=== PATIENT | female | born 1965 | race Caucasian/White ===

== ENCOUNTER 2017-01-04 11:09 | Inpatient (IN) | payer OTHER ==
[2017-01-04] VITALS (9 sets, daily range): BP systolic 131–172; BP diastolic 69–87; PULSE 86–94; RESP 18–20; TEMP 97–97.9; O2SAT 97–99
[~2017-01-04] VITALS: Ht 154.9 cm; Wt 97.5 kg
[~2017-01-04 11:09] MED LIST: GUAI100S6 PO; LISI-357 PO; NOVOLOGP2 IMPLANT; PERC5TAB12 PO; PROM25TA5 PO; SYNT25TA PO; TAMS0.4C67 PO; VITA500T49 PO
--- NOTE | 2017-01-04 11:41 | PD ---
HPI Chief Complaint: Chest Pain Time Seen by Provider: 11:25 Travel History International Travel<30 days: No Contact w/Intl Traveler<30days: No Traveled to known affect area: No History of Present Illness HPI 51-year-old female complains of chest pain. Patient states that she started having substernal and left-sided chest pain for the past 5 days. Patient states the pain pressure pain localized to the substernal and left chest area. Patient denies any pain radiation. Patient states that she has intermittent palpitation. Patient denies any nausea diaphoresis. Patient denies any coughing congestion fever chills. Patient states that he is under a lot of stress at home. Patient states that she is going through menopause and has frequent hot flashes. Patient denies any history of CAD. Patient has history hypertension, diabetes, hyperlipidemia. Patient is a smoker. Patient has family history heart disease. On a scale of 1-10 the chest pain is an 8. Patient states that she had coffee this morning. PFSH Past Medical History High Cholesterol: Yes Diabetes: Yes Patient Takes Glucophage: No Diminished Hearing: No Gastrointestinal Disorders: Yes (gastroparesis) Hypertension: Yes Kidney Stones: Yes Immunizations Current: No Thyroid Disease: Yes (HYPO) Tetanus Vaccination: > 5 Years Influenza Vaccination: No ?: Not Menopausal: Yes : 7 Para: 2 Miscarriage: 5 Tubal Ligation: Yes Past Surgical History Abdominal Surgery: Yes (HERNIA REPAIR, INSULING PUMP PLACEMENT) Body Medical Devices: INSULIN PUMP Section: Yes (x 2) Cholecystectomy: Yes Insulin Pump: Yes (NOVOLOG basal rate varies) Other Surgery: Yes (abcess to pelvic wall ) Social History Alcohol Use: No Tobacco Use: Yes (1 pk q 3 days) Substance Use: No Allergies-Medications (Allergen,Severity, Reaction): Coded Allergies: ciprofloxacin (Unverified Allergy, Severe, ELEVATED BLOOD SUGAR, 01/04/17) gabapentin (Unverified Allergy, Intermediate, HIGH BLOOD SUGARS, 01/04/17) metoclopramide (Unverified Allergy, Mild, FLIPS OUT, 01/04/17) Reported Meds & Prescriptions Reported Meds & Active Scripts Active Flomax (Tamsulosin HCl) 0.4 Mg Cap 0.4 Mg PO HS Phenergan 25 mg (Promethazine HCl) 25 Mg Tab 12.5 Mg PO Q6H PRN Percocet 5-325 mg (Oxycodone/Acetaminophen) 1 Tab 1-2 Tab PO Q6H PRN Robitussin Ac (Guaifenesin/Codeine Phosphate) Syrp 5-10 Ml PO Q4-6H PRN FOR COUGH Reported Novolog (Insulin Aspart) Unknown Strength Inj Unknown Dose IMPLANT DIRECTED Lisinopril 5 mg (Lisinopril) 5 Mg Tab 2.5 Mg PO DAILY Synthroid (Levothyroxine Sodium) 25 Mcg Tab 2.25 Mcg PO DAILY Vitamin B12 (Cyanocobalamin) 500 Mcg Tab 500 Mcg PO DAILY Review of Systems General / Constitutional: No: Fever Eyes: No: Visual changes HENT: No: Headaches Cardiovascular: Positive: Chest Pain or Discomfort Respiratory: No: Shortness of Breath Gastrointestinal: No: Abdominal Pain Genitourinary: No: Dysuria Musculoskeletal: No: Pain Skin: No Rash Neurologic: No: Weakness Psychiatric: No: Depression Endocrine: No: Polydipsia Hematologic/Lymphatic: No: Easy Bruising Physical Exam Narrative GENERAL: Well-nourished, well-developed patient. SKIN: Focused skin assessment warm/dry. HEAD: Normocephalic. EYES: No scleral icterus. No injection or drainage. NECK: Supple, trachea midline. No JVD or lymphadenopathy. CARDIOVASCULAR: Regular rate and rhythm without murmurs, gallops, or rubs. RESPIRATORY: Breath sounds equal bilaterally. No accessory muscle use. GASTROINTESTINAL: Abdomen soft, non-tender, nondistended. MUSCULOSKELETAL: No cyanosis, or edema. BACK: Nontender without obvious deformity. No CVA tenderness. Neurologic exam normal. Data Data Last Documented VS Vital Signs Date Time Temp Pulse Resp B/P Pulse Ox O2 Delivery O2 Flow Rate FiO2 01/04/17 12:10 94 18 165/82 99 Nasal Cannula 2 01/04/17 11:29 97.9 Orders Electrocardiogram (01/04/17 11:34) Complete Blood Count With Diff (01/04/17 11:34) Comprehensive Metabolic Panel (01/04/17 11:34) Creatine Kinase (Cpk) (01/04/17 11:34) Troponin I (01/04/17 11:34) Prothrombin Time / Inr (Pt) (01/04/17 11:34) Act Partial Throm Time (Ptt) (01/04/17 11:34) Chest, Single Ap (01/04/17 11:34) Iv Access Insert/Monitor (01/04/17 11:34) Ecg Monitoring (01/04/17 11:34) Oximetry (01/04/17 11:34) Aspirin (Aspirin) (01/04/17 11:45) Labs Laboratory Tests Test 01/04/17 11:20 White Blood Count 8.9 TH/MM3 Red Blood Count 5.09 MIL/MM3 Hemoglobin 14.7 GM/DL Hematocrit 44.2 % Mean Corpuscular Volume 86.9 FL Mean Corpuscular Hemoglobin 28.9 PG Mean Corpuscular Hemoglobin 33.3 % Concent Red Cell Distribution Width 13.5 % Platelet Count 186 TH/MM3 Mean Platelet Volume 9.8 FL Neutrophils (%) (Auto) 57.9 % Lymphocytes (%) (Auto) 31.0 % Monocytes (%) (Auto) 7.6 % Eosinophils (%) (Auto) 2.0 % Basophils (%) (Auto) 1.5 % Neutrophils # (Auto) 5.1 TH/MM3 Lymphocytes # (Auto) 2.8 TH/MM3 Monocytes # (Auto) 0.7 TH/MM3 Eosinophils # (Auto) 0.2 TH/MM3 Basophils # (Auto) 0.1 TH/MM3 CBC Comment DIFF FINAL Differential Comment Prothrombin Time 10.9 SEC Prothromb Time International 1.0 RATIO Ratio Activated Partial 29.4 SEC Thromboplast Time Sodium Level 142 MEQ/L Potassium Level 4.0 MEQ/L Chloride Level 109 MEQ/L Carbon Dioxide Level 26.8 MEQ/L Anion Gap 6 MEQ/L Blood Urea Nitrogen 14 MG/DL Creatinine 0.78 MG/DL Estimat Glomerular Filtration 78 ML/MIN Rate Random Glucose 76 MG/DL Calcium Level 9.2 MG/DL Total Bilirubin 0.6 MG/DL Aspartate Amino Transf 13 U/L (AST/SGOT) Alanine Aminotransferase 19 U/L (ALT/SGPT) Alkaline Phosphatase 96 U/L Total Creatine Kinase 81 U/L Troponin I LESS THAN 0.02 NG/ML Total Protein 7.3 GM/DL Albumin 3.7 GM/DL [facility] Medical Decision Making Medical Screen Exam Complete: Yes Emergency Medical Condition: Yes Interpretation(s) 11:41 AM. EKG shows sinus rhythm nonspecific ST-T wave change. 12:42 PM. CBC within normal limit. CMP within normal limit. Cardiac enzymes are normal. Differential Diagnosis Differential diagnosis including musculoskeletal, angina, DC, PE, pneumothorax, anxiety. Narrative Course 51-year-old female with chest pain. Diagnosis Primary Impression: Chest pain Qualified Code: R07.9 - Chest pain, unspecified type Yuniel Nobles MD Jan 04, 2017 11:41
[2017-01-04] MEDS ORDERED: ASPIRIN 325 MG TAB PO ONE (11:45)
[2017-01-04 11:56] LABS: AUTOMATED NEUTROPHIL # 5.1 TH/MM3 (1.8-7.7); BASOPHIL # 0.1 TH/MM3 (0-0.2); BASOPHIL % 1.5 % (0.0-2.0); EOSINOPHIL # 0.2 TH/MM3 (0-0.4); HEMATOCRIT 44.2 % (35.0-46.0); HEMO FLAGS DIFF FINAL; LYMPHOCYTE # 2.8 TH/MM3 (1.0-4.8); MEAN CELL VOLUME 86.9 FL (80.0-100.0); MEAN CORPUSCULAR HEMOGLOBIN 28.9 PG (27.0-34.0); MEAN CORPUSCULAR HGB CONC 33.3 % (32.0-36.0); MONO % 7.6 % (0.0-8.0); NEUT % 57.9 % (16.0-70.0); PLATELET COUNT 186 TH/MM3 (150-450); RED BLOOD COUNT 5.09 MIL/MM3 (4.00-5.30); RED CELL DISTRIBUTION WIDTH 13.5 % (11.6-17.2); WHITE BLOOD COUNT 8.9 TH/MM3 (4.0-11.0)
[2017-01-04 12:10] LABS: CHLORIDE 109 MEQ/L (98-107); SODIUM (NA) 142 MEQ/L (136-145)
[2017-01-04 12:14] LABS: APTT (PATIENT) 29.4 SEC (24.3-30.1); PROTHROMBIN TIME - PATIENT 10.9 SEC (9.8-11.6)
[2017-01-04 12:15] LABS: ANION GAP 6 MEQ/L (5-15); BICARBONATE 26.8 MEQ/L (21.0-32.0); BLOOD UREA NITROGEN 14 MG/DL (7-18)
[2017-01-04 12:18] LABS: ALT (GPT) 19 U/L (10-53); AST (GOT) 13 U/L (15-37); GLOMERULAR FILTRATION RATE 78 ML/MIN (>89)
[2017-01-04 12:19] LABS: TOTAL BILIRUBIN ADULT 0.6 MG/DL (0.2-1.0)
[2017-01-04 12:21] LABS: ALKALINE PHOSPHATASE 96 U/L (45-117)
[2017-01-04 12:29] LABS: CREATINE KINASE 81 U/L (26-192)
[2017-01-04] MEDS ORDERED: NITROGLYCERIN 0.4 MG SL 25 TABS/BTL SL PRN (13:00)
[2017-01-04] MEDS ORDERED: ONDANSETRON HCL 4 MG/2 ML VIAL IV PRN (13:00)
[2017-01-04] MEDS ORDERED: SODIUM CHLORIDE 0.9% FLUSH 10 ML FLUSH IV FLUSH PRN (13:00)
--- NOTE | 2017-01-04 13:11 | RADRPT ---
EXAM DATE/TIME: 01/04/2017 11:46 [facility] COMPARISON: No previous studies available for comparison. INDICATIONS : Intermittent chest pain x 5 days. MEDICAL HISTORY : Hypothyroidism. Hypercholesterolemia. Renal calculi. Diabetes mellitus type 2. Hypertension. Smok er. SURGICAL HISTORY : section. Cholecystectomy. Tubal ligation. section.Hernia repair, insulin pump. ENCOUNTER: Initial ACUITY: 4 - 6 days PAIN SCORE: 8/10 LOCATION: Left chest FINDINGS: A single view of the chest demonstrates the lungs to be symmetrically aerated without evidence of mas s, infiltrate or effusion. The cardiomediastinal contours are unremarkable. Osseous structures are intact. CONCLUSION: No acute disease. Chandu Maria MD on January 04, 2017 at 13:09 Board Certified Radiologist. This report was verified electronically.
[2017-01-04] MEDS ORDERED: LORazepam 1 MG TAB PO PRN (13:30)
--- NOTE | 2017-01-04 14:16 | HHI.HP ---
[facility] Marko Apple DO Admission Diagnosis chest pain Diagnoses: (1) Chest discomfort Diagnosis: Principal Chief Complaint: Palpitations and chest tightness Travel History International Travel<30 Days: No Contact w/Intl Traveler <30 Da: No Traveled to Known Affected Are: No History of Present Illness Written by Hank Holman, acting as scribe for Dr. Castaneda on 01/04/17 at 14: 08. 51-year-old female with known history of hypertension, hyperlipidemia , diabetes type 1, chronic tobacco use, anxiety/depression, family history of heart disease, sarcoidosis, hypothyroidism who presented to the hospital because of chest discomfort. Patient states that for 4 days now she's been experiencing discomfort which she describes as a palpitation in her chest with a tightness located over the left anterior chest. Patient states that it progressively gotten worse because she is under undue stress with in-laws moving into the house. Patient indicates that she lost her father just 2 weeks prior to having problems with the in-laws. She indicates every time that she discusses the matter she gets very anxious and starts to shake. During this time she feels palpitations in her chest with a tightness located in the left anterior chest and goes up into her left neck. She states that she has associated diaphoresis (however she does not know if that is associated with her menopause), she does get short of breath. She denies any nausea, vomiting, , lightheadedness or dizziness. Patient patient has never had any cardiac workup in the past. Patient indicates that the pain is worse whenever she tries to pick anything up. 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 She states that today when she was doing so she got the pain in her left anterior chest which made her come to the hospital for evaluation. Patient had workup done emergency department recommended observation chest pain center Review of Systems Constitutional: COMPLAINS OF: Diaphoretic episodes Respiratory: COMPLAINS OF: Shortness of breath Cardiovascular: COMPLAINS OF: Chest pain Psychiatric: COMPLAINS OF: Anxiety, Depression Except as stated in HPI: all other systems reviewed are Neg Past Family Social History Past Medical History Hypertension Hyperlipidemia Diabetes type 1 Sarcoidosis Hypothyroidism Chronic tobacco use Past Surgical History Insulin pump placement Hernia repair Cholecystectomy Tubal ligation 2 Pelvic wall abscess Reported Medications Reported Meds & Active Scripts Active Flomax (Tamsulosin HCl) 0.4 Mg Cap 0.4 Mg PO HS Phenergan 25 mg (Promethazine HCl) 25 Mg Tab 12.5 Mg PO Q6H PRN Percocet 5-325 mg (Oxycodone/Acetaminophen) 1 Tab 1-2 Tab PO Q6H PRN Robitussin Ac (Guaifenesin/Codeine Phosphate) Syrp 5-10 Ml PO Q4-6H PRN FOR COUGH Reported Novolog (Insulin Aspart) Unknown Strength Inj Unknown Dose IMPLANT DIRECTED Lisinopril 5 mg (Lisinopril) 5 Mg Tab 2.5 Mg PO DAILY Synthroid (Levothyroxine Sodium) 25 Mcg Tab 2.25 Mcg PO DAILY Vitamin B12 (Cyanocobalamin) 500 Mcg Tab 500 Mcg PO DAILY Allergies: Coded Allergies: ciprofloxacin (Unverified Allergy, Severe, ELEVATED BLOOD SUGAR, 01/04/17) gabapentin (Unverified Allergy, Intermediate, HIGH BLOOD SUGARS, 01/04/17) metoclopramide (Unverified Allergy, Mild, FLIPS OUT, 01/04/17) Family History Reviewed is significant for father having heart disease Social History Patient continues smoke, she is down to half a pack a cigarettes a day she is been smoking since she was 15 years old. Denies any alcohol or illicit drug Physical Exam Vital Signs Vital Signs Date Time Temp Pulse Resp B/P Pulse Ox O2 Delivery O2 Flow Rate FiO2 01/04/17 13:53 92 18 172/87 98 Room Air 01/04/17 12:10 94 18 165/82 99 Nasal Cannula 2 01/04/17 11:37 99 Nasal Cannula 2 01/04/17 11:32 94 99 Nasal Cannula 2 01/04/17 11:29 97.9 94 18 156/69 99 Physical Exam GENERAL: Well-developed, well-nourished, in no acute distress. alert and orientated HEENT: Head is normocephalic without any lesions or masses noted. Facial features are symmetric. Eyes: Pupils equal round reactive to light. Extraocular muscles are intact. Conjunctivae were clear. Oropharyngeal: Pharynx without any erythema edema. Tongue is midline without deviation. Buccal mucosa is moist without any masses or lesions NECK: Supple without any masses. Trachea midline no deviation. No JVD, no bruits are appreciated. CARDIAC: Regular rhythm, regular rate. S1/S2 are heard. No murmurs gallops or rubs. Pain is reproducible in left anterior chest on deep palpation LUNGS: Clear to auscultation bilaterally. No wheeze, rhonchi or rales. No use of accessory muscles on inspiration or expiration. ABDOMEN: Soft, nontender. Nondistended. Bowel sounds heard in all 4 quadrants. No organomegaly or masses. Negative rebound, negative guarding EXTREMITIES: No edema, pulses are equal bilaterally. No cyanosis or clubbing NEUROLOGY: Mood and affect appear appropriate. Cranial nerves II through XII grossly intact. Muscle strength 5/5 in upper and lower extremities bilaterally. Deep tendon reflexes are 2+ in upper and lower extremities bilaterally. Laboratory Laboratory Tests Test 01/04/17 11:20 White Blood Count 8.9 Red Blood Count 5.09 Hemoglobin 14.7 Hematocrit 44.2 Mean Corpuscular Volume 86.9 Mean Corpuscular Hemoglobin 28.9 Mean Corpuscular Hemoglobin 33.3 Concent Red Cell Distribution Width 13.5 Platelet Count 186 Mean Platelet Volume 9.8 Neutrophils (%) (Auto) 57.9 Lymphocytes (%) (Auto) 31.0 Monocytes (%) (Auto) 7.6 Eosinophils (%) (Auto) 2.0 Basophils (%) (Auto) 1.5 Neutrophils # (Auto) 5.1 Lymphocytes # (Auto) 2.8 Monocytes # (Auto) 0.7 Eosinophils # (Auto) 0.2 Basophils # (Auto) 0.1 CBC Comment DIFF FINAL Differential Comment Prothrombin Time 10.9 Prothromb Time International 1.0 Ratio Activated Partial 29.4 Thromboplast Time Sodium Level 142 Potassium Level 4.0 Chloride Level 109 Carbon Dioxide Level 26.8 Anion Gap 6 Blood Urea Nitrogen 14 Creatinine 0.78 Estimat Glomerular Filtration 78 Rate Random Glucose 76 Calcium Level 9.2 Total Bilirubin 0.6 Aspartate Amino Transf 13 (AST/SGOT) Alanine Aminotransferase 19 (ALT/SGPT) Alkaline Phosphatase 96 Total Creatine Kinase 81 Troponin I LESS THAN 0.02 Total Protein 7.3 Albumin 3.7 Result Diagram: 01/04/17 1120 8/15/17 1120 Imaging Last Impressions Chest X-Ray 01/04/17 1134 Signed Impressions: Service Date/Time: Wednesday, January 04, 2017 11:46 - CONCLUSION: No acute disease. Chandu Maria MD Assessment and Plan Assessment and Plan Chest discomfort: Likely related to anxiety and increased stress. Patient does have increased risk factors to include age, body habitus, hypertension, hyperlipidemia, diabetes, tobacco use, family history We'll continue to rule patient out for any acute coronary event with serial cardiac enzymes and serial EKGs We'll pursue nuclear stress test in the a.m. Continue aspirin, nitroglycerin as needed Start Ativan as needed for anxiety Hypertension, hyperlipidemia Continue home medications Diabetes Continue diabetic diet Patient to use her insulin pump DVT prevention Sequential compression devices This note was transcribed by scribe [Hank Holman]. I, Dr. Teagan Castaneda personally performed the history, physical exam, and medical decision making; and confirmed the accuracy of the information in the transcribed note. Authenticated by Dr. Teagan Castaneda on 01/04/17 at 14:15. Hank Holman Jan 04, 2017 14:16 Teagan Castaneda MD Jan 04, 2017 14:57
[2017-01-04] MEDS ORDERED: SYNT300T PO (14:29)
[2017-01-04] MEDS ORDERED: VITA20003 PO (14:29)
[2017-01-04] MEDS ORDERED: ZOCO40TA PO (14:29)
[2017-01-04] MEDS ORDERED: LISI10TA3 PO (14:29)
[2017-01-04] MEDS ORDERED: DEXTROSE 50% IN WATER 50 ML VIAL(D50) IV PRN (14:30)
[2017-01-04] MEDS ORDERED: GLUCAGON 1 MG/ML VIAL OTHER PRN (14:30)
[2017-01-04 14:50] LABS: CREATINE KINASE 66 U/L (26-192)
[2017-01-04] MEDS: ACETAMINOPHEN 500 MG CPLT PO PRN (15:54)
[2017-01-04 17:35] LABS: CREATINE KINASE 72 U/L (26-192)
[2017-01-04] MEDS: PRAVASTATIN SOD 40 MG TAB PO SCH (21:21)
[2017-01-04] MEDS: SODIUM CHLORIDE 0.9% FLUSH 10 ML FLUSH IV FLUSH SCH (21:22)
[2017-01-05] VITALS (8 sets, daily range): BP systolic 100–156; BP diastolic 62–77; PULSE 77–86; RESP 15–20; TEMP 96.6–98; O2SAT 95–99
--- NOTE | 2017-01-05 00:32 | EKG ---
Date Performed: 01/04/2017 Time Performed: 16:53:56 PTAGE: 51 years EKG: Sinus rhythm MODERATE INTRAVENTRICULAR CONDUCTION DELAY BORDERLINE ECG PREVIOUS TRACING : 01/04/2017 14.11 Compared to prior tracing no significant change DOCTOR: Damion Tanner Interpretating Date/Time 01/05/2017 00:30:38
[2017-01-05] MEDS ORDERED: LEVOTHYROXINE SODIUM 150 MCG TAB PO SCH (06:00)
[2017-01-05] MEDS ORDERED: ASPIRIN 325 MG TAB PO SCH (09:00)
[2017-01-05] MEDS: LISINOPRIL 10 MG TAB PO SCH (09:03)
[2017-01-05] MEDS: SODIUM CHLORIDE 0.9% FLUSH 10 ML FLUSH IV FLUSH SCH ×2 (09:03→20:26)
[2017-01-05 09:36] LABS: HDL CHOLESTEROL 33.3 MG/DL (40.0-60.0)
[2017-01-05] MEDS ORDERED: REGADENOSON INJ 0.4 MG/5 ML SYR IV ONE (10:15)
--- NOTE | 2017-01-05 11:20 | RADRPT ---
EXAM DATE/TIME: 01/05/2017 10:02 [facility] COMPARISON: No previous studies available for comparison. INDICATIONS : Left sided chest pain for 4 days. Angina. DOSE: 25.9 mCi Tc99m Myoview at stress. 8.1 mCi Tc99m Myoview at rest. 0.4 mg Lexiscan STRESS SYMPTOMS: Head pressure. EJECTION FRACTION: > 70% MEDICAL HISTORY : Hypertension. Diabetes mellitus type 1. SURGICAL HISTORY : Cholecystectomy. Tubal ligation. ENCOUNTER: Initial ACUITY: 4 - 6 days PAIN SCALE: 3/10 LOCATION: Left chest TECHNIQUE: The patient underwent pharmacologic stress with infusion of prescribed dose. Continuous ECG tracing was monitored during stress. Gated SPECT imaging was performed after stress and conventional SPECT i maging was performed at rest. The examination was performed on a SPECT/CT scanner, both attenuation and non-corrected datasets were reviewed. FINDINGS: DISTRIBUTION: The maximum perfused segment at stress is in the anterior wall. This is end stress score of 7. PERFUSION STUDY: There is a small focal area of mildly decreased perfusion involving the lateral wall with reversibili ty. GATED STUDY: There is intact wall motion and thickening without hypokinetic or dyskinetic segments. CONCLUSION: 1. Normal wall motion end calculated ejection fraction. 2. Mild perfusion defect involving the lateral wall with reversibility. This could indicate mild isch emia. RISK CATEGORY: Intermediate (1-3% Annual Mortality Rate) Timbo Corcoran MD on January 05, 2017 at 11:15 Board Certified Radiologist. This report was verified electronically.
--- NOTE | 2017-01-05 11:21 | HHI.PR ---
Subjective Remarks Patient reports feeling better this morning. No more chest pressure. Ambulated in the schrader cause some mild SOB. Wants to eat. Objective Vitals Vital Signs Date Time Temp Pulse Resp B/P Pulse Ox O2 Delivery O2 Flow Rate FiO2 01/05/17 09:07 86 01/05/17 08:16 95 21 01/05/17 04:00 97.1 80 18 100/62 97 01/05/17 00:00 96.6 79 18 118/70 99 01/04/17 22:03 97 21 01/04/17 20:00 97.0 87 20 131/76 97 01/04/17 20:00 93 01/04/17 17:11 18 01/04/17 16:00 97.5 86 18 143/73 97 01/04/17 14:43 94 18 152/70 98 01/04/17 14:16 98 21 01/04/17 13:53 92 18 172/87 98 Room Air 01/04/17 12:10 94 18 165/82 99 Nasal Cannula 2 01/04/17 11:37 99 Nasal Cannula 2 01/04/17 11:32 94 99 Nasal Cannula 2 01/04/17 11:29 97.9 94 18 156/69 99 I/O 01/04/17 01/04/17 01/04/17 01/05/17 01/05/17 01/05/17 07:00 15:00 23:00 07:00 15:00 23:00 Intake Total 240 ml Balance 240 ml Intake Oral 240 ml # Voids 3 # Bowel Movements 0 Result Diagram: 01/04/17 1120 01/04/17 1120 Imaging Last Impressions Chest X-Ray 01/04/17 1134 Signed Impressions: Service Date/Time: Wednesday, January 04, 2017 11:46 - CONCLUSION: No acute disease. Chandu Maria MD Objective Remarks GENERAL: This is a well-nourished, well-developed patient, in no apparent distress. CARDIOVASCULAR: Normal rate and regular rhythm without murmurs, gallops, or rubs. RESPIRATORY: Good respiratory efforts. Breath sounds equal and clear to auscultation bilaterally. GASTROINTESTINAL: Abdomen soft, non-tender, non-distended. Normal active bowel sounds MUSCULOSKELETAL: Extremities without cyanosis, or edema. NEURO: Alert & Oriented x4 to person, place, time, situation. Moves all ext x4 PSYCH: Appropriate mood and affect. A/P Problem List: (1) Chest discomfort ICD Code: R07.89 Status: Acute Assessment and Plan Chest pain: Patient does have increased risk factors to include age, body habitus, hypertension, hyperlipidemia, diabetes, tobacco use, family history Serial cardiac enzymes and EKG unremarkable. Nuclear stress test is positive for reversible ischemia. - Heparin drip per protocol - shank sorter Cardiology consulted, recommends transfer to [facility] for Heart cath. Ordered. - Continue aspirin, nitroglycerin as needed - Ativan as needed for anxiety Hypothyroidism: TSH is low. Patient reports that last time her medication was decreased was over 2 months ago. She has a follow-up appointment outpatient next week. Decrease dose to 200 mcg. Advised outpatient follow up. Hypertension, hyperlipidemia Continue home medications Diabetes Continue diabetic diet Patient to use her insulin pump DVT prevention Sequential compression devices Teagan Castaneda MD Jan 05, 2017 11:21
[2017-01-05] MEDS: CHOLECALCIFEROL (VIT D3) 1000 UNIT TAB PO SCH (11:22)
[2017-01-05] MEDS: ACETAMINOPHEN 500 MG CPLT PO PRN (11:23)
[2017-01-05] MEDS ORDERED: PILL SPLITTER OTHER PRN (11:45)
[2017-01-05] MEDS ORDERED: HEPARIN-D5W 25,000 U/250 ML 250 ML IV SCH (11:45)
[2017-01-05] MEDS ORDERED: HEPARIN SODIUM - IV 10,000 UNITS/10 ML VIAL IV ONE (11:45)
[2017-01-05] MEDS ORDERED: NITROGLYCERIN 2% OINT 1 GM PACKET TOPICAL SCH (12:00)
[2017-01-05 12:27] LABS: HEMATOCRIT 42.3 % (35.0-46.0); MEAN CELL VOLUME 86.8 FL (80.0-100.0); MEAN CORPUSCULAR HEMOGLOBIN 29.7 PG (27.0-34.0); MEAN CORPUSCULAR HGB CONC 34.2 % (32.0-36.0); PLATELET COUNT 164 TH/MM3 (150-450); RED BLOOD COUNT 4.88 MIL/MM3 (4.00-5.30); RED CELL DISTRIBUTION WIDTH 13.4 % (11.6-17.2); REVIEW FLAG FINAL; WHITE BLOOD COUNT 8.7 TH/MM3 (4.0-11.0)
[2017-01-05] MEDS: METOPROLOL TARTRATE 25 MG TAB PO SCH ×2 (12:37→20:24)
[2017-01-05 12:40] LABS: APTT (PATIENT) 29.3 SEC (24.3-30.1); PROTHROMBIN TIME - PATIENT 11.2 SEC (9.8-11.6)
[2017-01-05] MEDS ORDERED: HEPARIN-NS/PF INJ 500 ML ONE ×2 (14:06→15:47)
[2017-01-05] MEDS ORDERED: NITROGLYCERIN INJ 5 ML ONE (14:07)
[2017-01-05] MEDS ORDERED: MIDAZOLAM HCL 2 MG/2 ML VIAL ONE ×2 (14:07→15:22)
[2017-01-05] MEDS ORDERED: HEPARIN SODIUM - IV 10,000 UNITS/10 ML VIAL ONE (14:07)
[2017-01-05] MEDS ORDERED: NS 1000P @30 MLS/HR (KVO) IV SCH (14:30)
--- NOTE | 2017-01-05 15:13 | MB ---
cc: ALYSIA MCNAMARA DATE OF CONSULTATION: 01/05/2017 REASON FOR CONSULTATION Unstable angina. HISTORY OF PRESENT ILLNESS This is a very nice 51-year-old female with multiple cardiovascular risk factors including blood pressure, cholesterol, diabetes and tobacco use, who presents with left anterior chest pain. She states over the course of the past 3-4 days she has been experiencing this discomfort which she describes as a heaviness, sort of like an elephant sitting on her chest. It is sometimes associated with exertion. She states that it radiates towards her neck and is associated with diaphoresis. She came into the [facility] and there she ruled out by cardiac biomarkers and electrocardiogram was unremarkable. Stress test was performed today which was intermediate risk secondary to a reversible perfusion abnormality in the lateral wall. She was sent over from [place] for consideration of cardiac catheterization. PAST MEDICAL HISTORY 1. Hypertension. 2. Diabetes. 3. Hyperlipidemia. 4. Sarcoidosis. 5. Hypothyroidism. 6. Chronic tobacco abuse. 7. Cholecystectomy. 8. Tubal ligation. 9. . MEDICATIONS Reported medications: 1. Novolin insulin. 2. Lisinopril. 3. Synthroid. 4. Vitamin-D. ALLERGIES 1. CIPROFLOXACIN. 2. GABAPENTIN. 3. METOCLOPRAMIDE. FAMILY HISTORY Denies any family history of early coronary artery disease or sudden cardiac . SOCIAL HISTORY Denies any drug use. Smokes a half pack a day. Denies any alcohol use. PHYSICAL EXAMINATION VITAL SIGNS: Temperature 97, pulse 77, blood pressure 156/71 mmHg. GENERAL: Alert and oriented x3, in no acute distress. HEENT: Pupils are reactive to light and accommodation. Extraocular movements are intact. NECK: No jugular venous distention. No thyromegaly. No lymphadenopathy. No carotid bruit. LUNGS: Clear to auscultation bilaterally. CARDIOVASCULAR: Regular rate and rhythm without murmurs, rubs or gallops. ABDOMEN: Nontender, nondistended. Good bowel sounds. No hepatosplenomegaly. EXTREMITIES: No clubbing, cyanosis or edema. Good peripheral pulses. NEUROLOGIC: Cranial nerves intact. Motor and sensory are intact. LABORATORY WBC 8.71, hemoglobin 17.5, platelet count 164. INR is 1. Sodium 142, potassium 4.0, BUN 14, creatinine 0.78. Troponins negative x3. TSH 0.016. ASSESSMENT 1. Unstable angina. 2. Hypertension, hyperlipidemia, diabetes, tobacco abuse. PLAN 1. She has multiple cardiovascular risk factors with intermediate risk abnormal stress test and somewhat suggestive symptoms. Troponin and electrocardiogram are both unremarkable but given her pretest likelihood as intermediate to high risk, will proceed with cardiac catheterization. The risks, benefits and alternatives were discussed with the patient and she is agreeable to proceed. Will plan for a right radial approach. 2. She may need some adjustment of her Synthroid dose given her TSH. MD ESTUARDO Ash/BT /2:51 PM /2:57 PM
[2017-01-05] MEDS ORDERED: BIVALIRUDIN 250 MG VIAL ONE (15:37)
[2017-01-05] MEDS ORDERED: STERILE WATER FOR INJECTION 10 ML VIAL ONE (15:37)
[2017-01-05] MEDS ORDERED: CLOPIDOGREL 300 MG TAB ONE (16:07)
[2017-01-05] MEDS: SODIUM CHLOR 0.9% 1000 ML INJ 1,000 ML IV SCH (16:18)
[2017-01-05] MEDS ORDERED: BIVALIRUDIN INJ 250 MG in SODIUM CHLORIDE 0.9% INJ 50 ML IV SCH (16:18)
--- NOTE | 2017-01-05 16:20 | CATHPROC ---
[employer] HIS Report Study Information Study Number Admission Scheduled Start Study Start [id number] Jan 05 2017 12:27PM 01/05/2017 Jan 05 2017 2:40PM Study Type [place] Service Left/Possible PCI Cardiac Catheterization Admit Source Facility Department Other [facility] - Coding Support Specialist Physician and Clinical Staff Initial Cory Perea Consulting Solution Manager Roula Wills BSRN Recorder Emma Demarco,RT(R) Scrub Rehana Quiroz,MAGAZINE FILLER TECH2 Scrub Sera Mai,RT(R) X-Ray Constantin Galicia,RT(R) Procedures Performed Procedure Location (Site) Vessel Name Coronary Angiograms LCA Left Coronary Coronary Angiograms RCA Right Coronary Drug Eluting Inflatio LAD Mid Left Coronary L Heart Cath PTCA Radial (right) Radial Art. PTCA ADD ON'S Wire insertion Radial (right) Radial Art. Equipment Time Stock Selector Description Size Mfg Part Number Used/Scraped COPILOT VALVE, BLEEDBACK [id number] 15:42 [employer] Used CONTROL *[id number] TRANSDUCER, TRUWAVE [id number] 14:43 SINGH NEFF * Used W/STOCKCOCK *[id number] 15:43 [employer] AL 1 GUIDE CATHETER RUNWAY FR 6 Used *[id number] 15:54 [employer] BALLOON, 2.5 15MM EMERGE MR 2.5 15MM Used *[id number] 16:02 [employer] STENT, SYNERGY 2.25 X 16MM Used *[id number] *[id number] *[id number] *[id number] 14:43 Melty PACK, CCL CUSTOM * Used *[id number] 14:43 Melty SUPPORT, ARTERIAL ADULT 66225 *[id number] Used [id number] 14:43 [employer] PACER PEN, SKIN DUAL W/ RULER * Used *[id number] 15:41 vogogo 30 GASTON INDEFLATOR Used *[id number] BAND, RADIAL COMPRESSION TR [id number] 16:09 [employer] 24CM Used SHORT 24 *[id number] BAND, RADIAL COMPRESSION TR [id number] 16:09 [employer] 24CM Used SHORT 24 *[id number] SHEATH, FR6 RADIAL PRELUDE 14:43 vogogo FR 6 [id number] Used EASE 11CM [id number] 14:43 vogogo WIRE, EXCHANGE 260CM 3MMJ 260CM Used *[id number] 14:43 [employer]ED OMNIPAQUE, 350 MG, 150ML 150ML [id number] Used 15:42 [employer] OMNIPAQUE, 350 MG, 150ML 150ML [id number] Used 15:41 [employer] OMNIPAQUE, 350 MG, 50ML 50ML [id number] Used [id number] 14:43 [facility] [place] BLANKET,WARM AIR CCL * Used *[id number] WIRE, RUNTHROUGH NS FLOPPY [id number] 15:42 Pirq 180CM Used .014 180CM *[id number] Equipment Model, Serial, Lot Number and Expiration Data Description Model Number Serial Number Lot Number Expiration Date BALLOON, 2.5 15MM EMERGE MR [id number] 04-21-2019 STENT, SYNERGY [id number] 05-27-2017 History: Current Medications Medication Dosage/Unit Route Frequency Last Date/Time Taken Insulin Synthroid LISINOPRIL History: Allergies Allergy Reaction ciprofloxacin ELEVATED BLOOD SUGAR gabapentin HIGH BLOOD SUGARS metoclopramide FLIPS OUT History: Risk Factors Family History of Hypertension Dyslipidemia Previous NV Previous Heart Failure Premature CAD Yes Yes Yes No No Prior Valve Prior PCI Prior CABG Surgery No No No Cerebrovascular Peripheral Artery Chronic Lung On Dialysis Diabetes Diabetes Therapy Disease Disease Disease No No No No Yes Insulin History: Risk Factors Selection Items Current Smoker History: Stress Tests Stress or Imaging Studies Performed Yes Standard Exercise Stress Test No Stress Echo No Stress Test SPECT Stress Test SPECT Result Stress Test SPECT Ischemia Risk/Extent Yes Positive Intermediate Stress Test CMR No Cardiac CTA Coronary Calcium Score No No History: Other Disease Selection Items HTN History: Other Current Smoker Method Yes Cigarettes Labs Hgb (g/dl) Hct (%) RBC (MIL/MM3) WBC (l/cumm) Platelets (thousands) 11.60-17.00 35.00-51.00 4.00-5.90 4.00-11.00 150.00-450.00 14.5 42.3 4.8 8.7 164 Glucose (mg/dl) BUN (mg/dl) Creatinine (mg/dl) BUN:Creatinine (1:x) 74.00-106.00 7.00-18.00 0.50-1.30 10.00-20.00 76 14 0.7 20 Na (meq/l) K (meq/l) Cl (meq/l) CO2 (mmol/L) Ca (mg/dl) 136.00-145.00 3.50-5.10 98.00-107.00 21.00-32.00 8.50-10.10 142 4 109 26.8 9.2 PT (sec) PTT (sec) INR (PTT:PT) 9.80-11.60 24.30-30.10 0.90-1.10 11.2 29.3 1 Troponin I (ng/ml) CPK (u/l) CPK-MB (ng/ML) 0.02-0.05 26.00-308.00 0.50-3.60 0.02 72 Not Drawn Medication Medication Total Dose (Bolus/Oral) Medication Total Dosage/Unit 1% XYLOCAINE 20 mL ANGIOMAX BOLUS 15 mL FENTANYL 25 mcg NTG (IC) 200 mcg PLAVIX 600 mg RADIAL COCKTAIL 5 mL (Bolus) VERSED 4 mg Medications (Bolus/Oral) Medication Time Given Dosage/Unit Administered By Reason VERSED 01/05/2017 3:12:18 PM 2 mg Rittenour, Roula 2 mg VERSED given in lab by Roula Wills BSRN via Peripheral IV. Ordered by Cory Carter. 1% XYLOCAINE 01/05/2017 3:17:04 PM 20 mL Cory Carter 20 mL 1% XYLOCAINE given in lab by Cory Carter in Right Radial via Subcutaneous. VERSED 01/05/2017 3:22:08 PM 1 mg Rittenour, Roula 1 mg VERSED given in lab by Roula Wills BSRN via Peripheral IV. RADIAL COCKTAIL 01/05/2017 3:28:20 PM 5 mL (Bolus) Cory Carter 5 mL (Bolus) RADIAL COCKTAIL given in lab by Cory Carter via Radial. Using [Solution Name]. NITRO 200 MCQ VERSED 01/05/2017 3:39:34 PM 1 mg Rittenour, Roula 1 mg VERSED given in lab by Roula Wills BSRN via Peripheral IV. FENTANYL 01/05/2017 3:39:43 PM 25 mcg Rittenour, Roula 25 mcg FENTANYL given in lab by Roula Wills BSRN via Peripheral IV. ANGIOMAX BOLUS 01/05/2017 3:41:17 PM 15 mL Roula Wills 15 mL ANGIOMAX BOLUS given in lab by Roula Wills BSRN via Peripheral IV. NTG (IC) 01/05/2017 4:06:03 PM 200 mcg Cory Carter 200 mcg NTG (IC) given in lab by Cory Carter via Intra-coronary. PLAVIX 01/05/2017 4:11:34 PM 600 mg Cory Carter 600 mg PLAVIX given in lab by Cory Carter via Oral. Medication (Drip) Medication Time Given Dosage/Unit Concentration/Unit Diluent (ml) Solution ANGIOMAX DRIP 01/05/2017 3:44:20 PM 1.753 mg/kg/hr 250 mg 50 NaCl .9 1.753 mg/kg/hr ANGIOMAX DRIP given in lab by Roula Wills BSRN via Peripheral IV. Pump/Drip Flow = 34 ml/hr using NaCl .9 with a concentration of 250 mg in 50 ml. IV Solutions 01/05/2017 2:45:17 PM 0 mL (IV) 500 NaCl .9 Patient arrived on IV Solutions in Left Antecubital via Peripheral IV. Pump/Drip Flow = 20 ml/hr usin g NaCl .9. Ordered by Cory Carter. Initial Case Assessment Cardiovascular HR Rhythm Chest Pain 89 reg 0 Edema Present Skin color Skin None Normal Warm Circulatory - Right Pulses Dorsalis Pedis Femoral 2 2 Scale (0,1,2,3,4,d) Circulatory - Left Pulses Dorsalis Pedis Femoral 2 2 Scale (0,1,2,3,4,d) Circulatory - Lower Extremities Color Lower Right Color Lower Left Normal Normal Neurological State Oriented to time-place- Alert Moves all extremities person Respiration - General Respiration Rate SpO2 (%) (B/min) 20 96 Final Case Assessment Cardiovascular HR Rhythm NIBP Chest Pain 90 REG 159/70 0 Edema Present Skin color Skin None Normal Warm Circulatory - Right Pulses Dorsalis Pedis Femoral 2 2 Scale (0,1,2,3,4,d) Circulatory - Left Pulses Dorsalis Pedis Femoral 2 2 Scale (0,1,2,3,4,d) Circulatory - Lower Extremities Color Lower Right Color Lower Left Normal Normal Neurological State Oriented to time-place- Alert Moves all extremities person Respiration - General Respiration Rate SpO2 (%) (B/min) 16 96 Chronological Log Time Study Chronological Log 14:26:35 HEPARIN DISCONTINUED IN PTS ROOM 14:30:40 Patient arrived via Bed. Vitals capture started with the following parameters, Patient=Adult, Interval=5 min, Initial Pr vouiif=584 mmHg, 14:40:24 Deflation Rate=5 mmHg, Cuff placed on Right Arm 14:41:04 HR=90 bpm, ESWH=122/72 mmhg, SpO2=96.0 %, Resp=8 B/min, Pain=0, Flower=10, Cody=2 14:42:10 Reference ECG taken 14:42:14 Patient Name, D.O.B, / Armband Verified By R.N. 14:42:15 Consent signed by the physician and the patient and verified by the Coding Support Specialist staff. 14:42:16 Pre-op and post- op instructions given; patient acknowledges understanding of instructions. 14:42:16 Verbal Stimulation=2 Physical Stimulation=2 Airway=2 Respiration=2 TOTAL=8. (0=absent, 1=li mited, 2=present) 14:42:20 Allens test performed on the right radial and ulnar artery with a positive result by Rehana harley 14:45:01 Patient has been NPO for More than 6Hrs. 14:45:06 A # 20 IV was noted in the Antecubital (left). Grade = 0 Patient arrived on IV Solutions in Left Antecubital via Peripheral IV. Pump/Drip Flow = 20 ml/h r using NaCl .9. Ordered 14:45:17 by Cory Carter. 14:45:35 History and physical on the chart or being dictated. Assessment: Initial Case, HR=89 BPM, Rhythm=reg, Chest Pain=0, Edema=None, Color=Normal, Skin = Warm Right Pulses: Genaro Ped=2, Femoral=2 Left Pulses: Genaro Ped=2, Femoral=2 14:45:37 Lower Right Extremities: Color=Normal Lower Left Extremities: Color=Normal Neurological: State=Alert, Ox3, PLASCENCIA Respiration: Resp=20 B/min, SpO2=96 % 14:46:07 HR=89 bpm, TCLM=052/76 mmhg, SpO2=96.0 %, Resp=14 B/min, Pain=0, Flower=10, Cody=2 14:46:34 Right Radial and groin(s) prepped with 2% chlorhexidine, and with a 3 min. waiting time. 14:51:04 HR=86 bpm, SZTJ=799/72 mmhg, SpO2=97.0 %, Resp=10 B/min, Pain=0, Flower=10, Cody=2 14:52:22 Pressure channel 1 zeroed. 14:56:09 HR=86 bpm, YNZF=512/65 mmhg, SpO2=97.0 %, Resp=9 B/min, Pain=0, Flower=10, Cody=2 15:01:04 HR=85 bpm, GWIW=702/69 mmhg, SpO2=96.0 %, Resp=9 B/min, Pain=0, Flower=10, Cody=2 15:05:02 MD paged 15:06:07 HR=84 bpm, UZNP=325/64 mmhg, SpO2=97.0 %, Resp=14 B/min, Pain=0, Flower=10, Cody=2 15:11:08 HR=87 bpm, DHXK=633/70 mmhg, SpO2=98.0 %, Resp=12 B/min, Pain=0, Flower=10, Cody=2 15:12:15 MD arrived. 15:12:18 2 mg VERSED given in lab by Roula Wills BSRN via Peripheral IV. Ordered by Rajan Carter. Time Out. Correct patient, correct procedure,correct physician, ,power injector not loaded with contrast with surgical 15:15:17 team present. Time Out Concurred by MD, individual staff and STITCHING MACHINE OPERATOR in procedure 15:15:45 Case Start 15:15:49 Verbal Stimulation=2 Physical Stimulation=2 Airway=2 Respiration=2 TOTAL=8. (0=absent, 1=li mited, 2=present) 15:16:11 HR=89 bpm, GHHD=490/66 mmhg, SpO2=95 %, Resp=16 B/min, Pain=0, Flower=10, Cody=2 15:17:04 20 mL 1% XYLOCAINE given in lab by Cory Carter in Right Radial via Subcutaneous. 15:21:06 HR=87 bpm, TBSN=902/67 mmhg, SpO2=96.0 %, Resp=19 B/min, Pain=0, Flower=10, Cody=2 15:22:08 1 mg VERSED given in lab by Roula Wills BSRN via Peripheral IV. 15:26:09 HR=87 bpm, YRJO=432/62 mmhg, SpO2=95.0 %, Resp=16 B/min, Pain=0, Flower=10, Cody=2 15:27:40 Access site was Radial Artery.RT 15:27:52 A wire was inserted via Radial (right). A SHEATH, FR6 RADIAL PRELUDE EASE 11CM FR 6 was advanced into the Radial (right) using the Perc utaneous 15:28:04 technique. 15:28:20 5 mL (Bolus) RADIAL COCKTAIL given in lab by Cory Carter via Radial. Using [Solution Nam e]. NITRO 200 MCQ A JR 5.0 INFINITI CATHETER FR 6 was advanced over a wire. OMNIPAQUE, 350 MG, 150ML 150ML was us ed for 15:28:41 injections. Recorded Pressure: LV, HR=89, Condition=Condition 1 15:30:32 (Left Ventricle) LV 141/7/11 15:31:10 HR=88 bpm, WWAY=281/64 mmhg, SpO2=92.0 %, Resp=17 B/min, Pain=0, Flower=10, Cody=2 Recorded Pressure: LV, Ao, HR=88, Condition=Condition 1 15:31:11 (Left Ventricle) LV 143/9/10, (Aorta) Ao 137/71/98 Recorded Pressure: Ao, HR=88, Condition=Condition 1 15:31:40 (Aorta) Ao 139/72/101 15:31:50 The RCA was injected and visualized at various angles. OMNIPAQUE, 350 MG, 150ML 150ML used . After removing the current catheter a JL 3.5 INFINITI CATHETER FR 6 was advanced over a WIRE, E XCHANGE 260CM 15:33:24 3MMJ 260CM. 15:35:41 The LCA was injected and visualized at various angles. OMNIPAQUE, 350 MG, 150ML 150ML used . 15:36:07 HR=86 bpm, WLDW=360/68 mmhg, SpO2=95.0 %, Resp=14 B/min, Pain=0, Flower=10, Cody=2 15:39:34 1 mg VERSED given in lab by Roula Wills BSRN via Peripheral IV. 15:39:43 25 mcg FENTANYL given in lab by Roula Wills BSRN via Peripheral IV. 15:40:34 OMNIPAQUE, 350 MG, 50ML 50ML and 30 GASTON INDEFLATOR added. 15:41:08 HR=87 bpm, QQBJ=230/62 mmhg, SpO2=92.0 %, Resp=15 B/min, Pain=0, Flower=10, Cody=2 15:41:17 15 mL ANGIOMAX BOLUS given in lab by Roula Wills BSRN via Peripheral IV. A AL 1 GUIDE CATHETER RUNWAY FR 6 was advanced over a wire. OMNIPAQUE, 350 MG, 150ML 150ML was used for 15:42:16 injections. 1.753 mg/kg/hr ANGIOMAX DRIP given in lab by Roula Wills BSRN via Peripheral IV. Pump/Dri p Flow = 34 ml/hr 15:44:20 using NaCl .9 with a concentration of 250 mg in 50 ml. 15:46:07 HR=85 bpm, HMDQ=074/60 mmhg, SpO2=93 %, Resp=17 B/min, Pain=0, Flower=10, Cody=2 A AL 1 GUIDE CATHETER RUNWAY FR 6 was advanced over a wire. OMNIPAQUE, 350 MG, 150ML 150ML was used for 15:47:44 injections. 15:51:04 HR=85 bpm, UHYE=677/58 mmhg, SpO2=94 %, Resp=12 B/min, Pain=0, Flower=10, Cody=2 15:53:06 A WIRE, RUNTHROUGH NS FLOPPY .014 180CM 180CM was inserted via Radial (right). After removing the current catheter a AL .75 GUIDE CATHETER FR 6 was advanced over a WIRE, RUNT HROUGH NS 15:54:00 FLOPPY .014 180CM 180CM. 15:56:07 HR=87 bpm, BRGW=041/56 mmhg, SpO2=95.0 %, Resp=15 B/min, Pain=0, Flower=10, Cody=2 15:56:57 Interventional wire has crossed the lesion A BALLOON, 2.5 15MM EMERGE MR 2.5 15MM was inserted over WIRE, RUNTHROUGH NS FLOPPY .014 180CM 180CM 15:57:01 via the LAD Mid. A BALLOON, 2.5 15MM EMERGE MR 2.5 15MM over a WIRE, RUNTHROUGH NS FLOPPY .014 180CM 180CM in th e 15:57:42 Radial (right) was inflated using a 30 GASTON INDEFLATOR at 6 gaston for 30 sec. 15:58:57 Balloon Removed. 16:01:08 HR=88 bpm, XQXD=555/66 mmhg, SpO2=95 %, Resp=16 B/min, Pain=0, Flower=10, Cody=2 A STENT, SYNERGY 2.25 X 16MM was advanced through a AL .75 GUIDE CATHETER FR 6 over a WIRE, RUN THROUGH 16:01:49 NS FLOPPY .014 180CM 180CM. A STENT, SYNERGY 2.25 X 16MM was deployed using a 30 GASTON INDEFLATOR at 12 atmospheres for 12 se conds in the 16:04:17 LAD Mid. 16:04:51 The LCA was injected and visualized at various angles. OMNIPAQUE, 350 MG, 150ML 150ML used . 16:05:03 Delivery device removed 16:06:03 200 mcg NTG (IC) given in lab by Cory Carter via Intra-coronary. 16:06:12 HR=86 bpm, ZLJT=956/70 mmhg, SpO2=96.0 %, Resp=13 B/min, Pain=0, Flower=10, Cody=2 16:06:32 The LCA was injected and visualized at various angles. OMNIPAQUE, 350 MG, 150ML 150ML used . Assessment: Final Case, HR=90 BPM, Rhythm=REG, OXWQ=489/70 mmhg, Chest Pain=0, Edema=None, [place] r=Normal, Skin = Warm Right Pulses: Genaro Ped=2, Femoral=2 Left Pulses: Genaro Ped=2, Femoral=2 16:06:44 Lower Right Extremities: Color=Normal Lower Left Extremities: Color=Normal Neurological: State=Alert, Ox3, PLASCENCIA Respiration: Resp=16 B/min, SpO2=96 % 16:07:15 Catheter(s) removed without difficulty Radial Compression Device Used. 16 mLs of air placed in BAND, RADIAL COMPRESSION TR SHORT 24 24 CM. Affected 16:07:17 hand 96 % O2 saturation. 16:10:06 Case End 16:10:07 Sterile dressing applied to site 16:10:08 No case complications noted. 16:10:08 Cine recording checked. 16:10:11 Bedside Report will be given. 16:10:11 Implantable Device card placed in patient's chart. 16:10:14 Contrast Scanned 16:10:17 A Left Heart Cath was performed. 16:10:20 Clinical correlaton risk stratification. 16:11:11 HR=90 bpm, QUDJ=115/64 mmhg, SpO2=96.0 %, Resp=20 B/min, Pain=0, Flower=10, Cody=2 16:11:34 600 mg PLAVIX given in lab by Cory Carter via Oral. 16:16:14 HR=88 bpm, IWKX=836/56 mmhg, SpO2=95.0 %, Resp=13 B/min, Pain=0, Flower=10, Cody=2 End Study - Contrast Media Used In Study Contrast Total Opened (mL) Total Used (mL) Total Wasted (mL) Omnipaque 130 130 0 End Study - Maximum Contrast Load Max Contrast Load (mL) 692.9 End Study - Radiation Exposure Fluoro Time (minutes) 8.8 End Study - Sheaths Sheaths Pulled By Sheath Hold Time (min) Sera Mai End Study - Patient Disposition Complications Transferred To Interventional Outcome No Regular Bed successful
--- NOTE | 2017-01-05 16:23 | TR ---
Date Performed: 01/05/2017 Time Performed: 10:25:07 DOCTOR: Nils Belcher DRUG LIST: CLINICAL HISTORY: CHEST PAIN REASON FOR TEST: REASON FOR ENDING: OBSERVATION: CONCLUSION: Lexiscan stress test was performed under standard four minute protocol. Radionuclid e was injected one minute prior to ending the test. No electrocardiographic abormalities were present to suggest ischemia. Nuclear imaging and interpretation are pending. COMMENTS:
[2017-01-05] MEDS ORDERED: oxyCODONE/ACETAMINOPHEN 10 MG/325 MG TAB PO PRN (16:30)
[2017-01-05] MEDS ORDERED: MORPHINE SULFATE 4 MG/ML INJ IV PUSH PRN (16:30)
[2017-01-05] MEDS ORDERED: BACITRACIN OINT 0.9 GM PKT TOP ONE (16:30)
[2017-01-05] MEDS ORDERED: LIDOCAINE 2% JELLY 30 ML TUBE TOP PRN (16:30)
[2017-01-05] MEDS ORDERED: CLOPIDOGREL 300 MG TAB PO ONE (16:30)
[2017-01-05] MEDS ORDERED: MISC INFORMATION XX ONE (16:30)
[2017-01-05] MEDS ORDERED: oxyCODONE/ACETAMINOPHEN 5 MG/325 MG TAB PO PRN (16:30)
[2017-01-05] MEDS ORDERED: HEPARIN SODIUM - IV 10,000 UNITS/10 ML VIAL IV PRN ×2 (17:45)
--- NOTE | 2017-01-05 18:49 | MA ---
cc: CORY MCNAMARA DATE 01/05/2017 PROCEDURE Cardiac catheterization performed on 01/05/2017. INDICATION Unstable angina, intermediate risk stress test. FINANCE OFFICER Cory Mcnamara MD/FACC. PROCEDURE PERFORMED 1. Fluoroscopy with interpretation. 2. Coronary angiography. 3. Left heart catheterization. 4. Percutaneous intervention with drug-eluting stent to the mid left anterior descending coronary artery. METHOD The risks, benefits and alternatives were discussed with the patient. The patient understood and consented to the procedure. PROCEDURE The patient was brought into the catheterization lab and placed on the catheterization table. The right wrist was prepped and draped in a sterile fashion. The right wrist was anesthetized with 2% Lidocaine. The right radial artery was cannulated and a 6 Andorran 7 cm sheath was placed without difficulty. LEFT HEART CATHETERIZATION A 6 Andorran JR5 catheter was advanced across the aortic valve without difficulty. Intraventricular hemodynamic pressure at 143/9 mmHg. CORONARY ANGIOGRAPHY The left coronary circulation was selectively engaged with a 6 Andorran JL3.5 catheter. The right coronary circulation selectively engaged with a 6 Andorran JR5 catheter. CORONARY ANATOMY 1. Left main coronary is angiographically normal. 2. Left anterior descending coronary artery proximally is rather tortuous with a 40% eccentric stenosis present. The mid left anterior descending coronary has a 75-80% tubular stenosis just prior to the bifurcation with the diagonal branch. Distal LAD at the apex is small caliber size. 3. Left circumflex gives rise to an obtuse marginal branch which has mild luminal irregularities. Both are moderate to large size caliber vessels. 4. Right coronary is a dominant vessel giving rise to a posterior descending branch. Right coronary has mild luminal irregularities. PERCUTANEOUS INTERVENTION Given the patient's abnormal stress test and suggestive symptoms in the setting of multiple cardiovascular risk factors, we felt like she presented with symptoms consistent with acute coronary syndrome. Left coronary circulation was selectively engaged with a 6-Andorran AL 0.75 guide catheter. Angiomax was administered throughout the entire procedure to maintain appropriate anticoagulation. 0.014 inch 180 cm Terumo run-through wire was navigated down the distal left anterior descending coronary without difficulty. 2.5 x 15 mm RX Euphora balloon was advanced down the mid left anterior descending coronary and deployed to 6 atmospheres. Repeat angiography showed MICHAEL-III flow, improved angiographic result, but still moderate residual stenosis. A 2.25 x 16 mm RX drug-eluting stent was advanced down the mid left anterior descending coronary and deployed to 12 atmospheres. Repeat angiography showed no residual stenosis, MICHAEL III flow. The wire was removed. Guide catheter removed. Hemoband applied. CONCLUSION 1. Severe mid left anterior descending coronary artery disease. 2. Normal left-sided filling pressures. 3. Successful percutaneous intervention with a drug-eluting stent to mid left anterior descending coronary artery. PLAN Hopefully this will translate well with symptomatic improvement. The patient be initiated on aspirin, Plavix, beta-jameson and statin. Anticipate discharge tomorrow. MD ESTUARDO Ash/KK /4:13 PM /6:25 PM
[2017-01-05] MEDS: PRAVASTATIN SOD 40 MG TAB PO SCH (20:26)
[2017-01-06] VITALS (11 sets, daily range): BP systolic 102–153; BP diastolic 62–77; PULSE 75–89; RESP 16–20; TEMP 97.9–98; O2SAT 96–99
[2017-01-06] MEDS: SODIUM CHLOR 0.9% 1000 ML INJ 1,000 ML IV SCH (02:18)
[2017-01-06 04:19] LABS: AUTOMATED NEUTROPHIL # 8.2 TH/MM3 (1.8-7.7); BASOPHIL # 0.1 TH/MM3 (0-0.2); BASOPHIL % 0.5 % (0.0-2.0); EOSINOPHIL # 0.1 TH/MM3 (0-0.4); HEMATOCRIT 40.9 % (35.0-46.0); HEMO FLAGS DIFF FINAL; LYMPH % 14.6 % (9.0-44.0); LYMPHOCYTE # 1.6 TH/MM3 (1.0-4.8); MEAN CELL VOLUME 88.8 FL (80.0-100.0); MEAN CORPUSCULAR HGB CONC 33.9 % (32.0-36.0); MONO % 6.7 % (0.0-8.0); NEUT % 77.2 % (16.0-70.0); PLATELET COUNT 152 TH/MM3 (150-450); RED BLOOD COUNT 4.61 MIL/MM3 (4.00-5.30); RED CELL DISTRIBUTION WIDTH 14.2 % (11.6-17.2); WHITE BLOOD COUNT 10.7 TH/MM3 (4.0-11.0)
[2017-01-06 04:40] LABS: BICARBONATE 29.6 MEQ/L (21.0-32.0); POTASSIUM 4.6 MEQ/L (3.5-5.1)
[2017-01-06 04:42] LABS: HDL CHOLESTEROL 32.8 MG/DL (40.0-60.0)
[2017-01-06] MEDS ORDERED: LEVOTHYROXINE SODIUM 200 MCG TAB PO SCH (06:00)
[2017-01-06] MEDS: CHOLECALCIFEROL (VIT D3) 1000 UNIT TAB PO SCH (08:01)
[2017-01-06] MEDS: ACETAMINOPHEN 500 MG CPLT PO PRN (08:02)
[2017-01-06] MEDS: METOPROLOL TARTRATE 25 MG TAB PO SCH (08:03)
[2017-01-06] MEDS: LISINOPRIL 10 MG TAB PO SCH (08:03)
--- NOTE | 2017-01-06 08:04 | PD.CARD.PN ---
Subjective Subjective Remarks doing well vague CP. minimal SOB. Objective Medications Active Medications Aspirin (Aspirin Chew) 81 mg DAILY PO; Start 01/06/17 at 09:00 Aspirin (Aspirin) 325 mg DAILY PO Last administered on 01/05/17 09:02; Admin Dose 325 MG; Start 01/05/17 at 09:00; Stop 01/05/17 at 16:22; Status DC Bacitracin (Bacitracin Oint Packet) 0.9 gm ONCE ONCE TOP Last administered on 16:30; Admin Dose 0.9 GM; Start 01/05/17 at 16:30; Stop 01/05/17 at 16: 31; Status DC Bivalirudin (Angiomax Inj) 250 mg STK-MED ONCE .ROUTE Last administered on 15:44; Admin Dose 250 MG; Start 01/05/17 at 15:37; Stop 01/05/17 at 15:38; Status DC Bivalirudin/ Sodium Chloride (Angiomax Inj/NS Inj) 50 ml @ 0 mls/hr Q0M IV; Start 01/05/17 at 16:18; Stop 01/05/17 at 20:17; Status DC Cholecalciferol (Vitamin D3) 2,000 units DAILY PO Last administered on 11:22; Admin Dose 2,000 UNITS; Start 01/05/17 at 09:00 Clopidogrel Bisulfate (Plavix) 75 mg DAILY PO; Start 01/06/17 at 09:00 Clopidogrel Bisulfate (Plavix) 600 mg NOW ONCE PO; Start 01/05/17 at 16:30; Stop 01/05/17 at 16:31; Status DC Clopidogrel Bisulfate 600 mg 600 mg STK-MED ONCE .ROUTE Last administered on 16:11; Admin Dose 600 MG; Start 01/05/17 at 16:07; Stop 01/05/17 at 16: 08; Status DC Fentanyl Citrate 100 mcg 100 mcg STK-MED ONCE .ROUTE Last administered on 15:39; Admin Dose 100 MCG; Start 01/05/17 at 14:07; Stop 01/05/17 at 14:08 ; Status DC Heparin Sodium (Porcine) (Heparin Inj) 4,000 units ONCE ONCE IV Last administered on 01/05/17 12:49; Admin Dose 4,000 UNITS; Start 01/05/17 at 11:45 ; Stop 01/05/17 at 11:57; Status DC Heparin Sodium (Porcine) (Heparin Inj) 5,000 units UNSCH PRN IV; Start at 17:45; Stop 01/05/17 at 17:45; Status DC Heparin Sodium (Porcine) (Heparin Inj) 10,000 units STK-MED ONCE .ROUTE; Start 01/05/17 at 14:07; Stop 01/05/17 at 14:08; Status DC Heparin Sodium (Porcine) 2500 units 2,500 units UNSCH PRN IV; Start 01/05/17 at 17:45; Stop 01/05/17 at 17:45; Status DC Heparin Sodium/ Dextrose (Heparin-D5W Inj) 250 ml @ 0 mls/hr TITRATE IV Last administered on 01/05/17 12:50; Admin Dose 0 MLS/HR; Start 01/05/17 at 11:45; Stop 01/05/17 at 16:21; Status DC Heparin Sodium/ Sodium Chloride 500 ml @ As Directed STK-MED ONCE .ROUTE Last administered on 01/05/17 14:06; Admin Dose 500 MLS/HR; Start 01/05/17 at 14:06 ; Stop 01/05/17 at 14:07; Status DC Heparin Sodium/ Sodium Chloride (Heparin-NS/Pf Inj) 500 ml @ As Directed STK- MED ONCE .ROUTE; Start 01/05/17 at 15:47; Stop 01/05/17 at 15:48; Status DC Levothyroxine Sodium 200 mcg 200 mcg [id number] PO Last administered on 06:33; Admin Dose 200 MCG; Start 01/06/17 at 06:00 Lisinopril (Prinivil) 10 mg DAILY PO Last administered on 01/05/17 09:03; Admin Dose 10 MG; Start 01/05/17 at 09:00 Metoprolol Tartrate (Lopressor) 12.5 mg Q12HR PO Last administered on 01/05/17 20:24; Admin Dose 12.5 MG; Start 01/05/17 at 11:45 Midazolam HCl (Versed Inj) 2 mg STK-MED ONCE .ROUTE Last administered on 15:39; Admin Dose 2 MG; Start 01/05/17 at 14:07; Stop 01/05/17 at 14:08; Status DC Midazolam HCl (Versed Inj) 2 mg STK-MED ONCE .ROUTE Last administered on 15:22; Admin Dose 2 MG; Start 01/05/17 at 15:22; Stop 01/05/17 at 15:23; Status DC Miscellaneous (Pill Splitter) 1 ea UNSCH PRN OTHER; Start 01/05/17 at 11:45 Miscellaneous Information 1 1 ONCE ONCE XX Last administered on 01/05/17 16:30 ; Admin Dose 1; Start 01/05/17 at 16:30; Stop 01/05/17 at 16:31; Status DC Morphine Sulfate (Morphine Inj) 2 mg Q30M PRN IV PUSH; Start 01/05/17 at 16:30 Nitroglycerin (Nitroglycerin 2% Oint) 0.5 inch Q6HR TOPICAL Last administered on 01/05/17 12:37; Admin Dose 0.5 INCH; Start 01/05/17 at 12:00; Stop 01/05/17 at 16:21; Status DC Nitroglycerin (Nitroglycerin Inj) 5 ml @ As Directed STK-MED ONCE .ROUTE Last administered on 01/05/17 14:07; Admin Dose 5 MLS/HR; Start 01/05/17 at 14:07; Stop 01/05/17 at 14:08; Status DC Oxycodone/ Acetaminophen (Percocet 5-325 Mg) 1 tab Q4H PRN PO; Start 01/05/17 at 16:30 Oxycodone/ Acetaminophen (Percocet 10-325 Mg) 1 tab Q4H PRN PO Last administered on 01/05/17 20:24; Admin Dose 1 TAB; Start 01/05/17 at 16:30 Regadenoson (Lexiscan Inj) 0.4 mg STK-MED ONCE IV Last administered on 10:15; Admin Dose 0.4 MG; Start 01/05/17 at 10:15; Stop 01/05/17 at 10:16; Status DC Sodium Chloride (NS 1000 ml Inj) 1,000 ml @ 30 mls/hr Q24H IV; Start 01/05/17 at 14:30; Stop 01/05/17 at 16:21; Status DC Sodium Chloride (NS 1000 ml Inj) 1,000 ml @ 100 mls/hr Q10H IV Last administered on 01/05/17 16:18; Admin Dose 100 MLS/HR; Start 01/05/17 at 16:18 ; Stop 01/06/17 at 04:17; Status DC Sterile Water 10 ml 10 ml STK-MED ONCE .ROUTE Last administered on 01/05/17 15: 44; Admin Dose 10 ML; Start 01/05/17 at 15:37; Stop 01/05/17 at 15:38; Status DC Vital Signs / I&O Vital Signs Date Time Temp Pulse Resp B/P Pulse Ox O2 Delivery O2 Flow Rate FiO2 01/06/17 04:52 96 01/06/17 04:39 98.0 79 20 102/62 99 01/06/17 00:00 98.0 75 20 153/77 99 01/05/17 20:30 98.0 83 20 105/73 99 01/05/17 16:55 95 Room Air 01/05/17 14:16 97.1 77 20 156/71 99 01/05/17 12:23 18 01/05/17 12:00 97.1 77 18 156/77 01/05/17 09:07 86 01/05/17 08:16 95 21 I/O 01/05/17 01/05/17 01/05/17 01/06/17 01/06/17 01/06/17 06:59 14:59 22:59 06:59 14:59 22:59 Intake Total 240 ml 300 ml 1080 ml Balance 240 ml 300 ml 1080 ml Intake Oral 240 ml 300 ml 480 ml IV Total 600 ml # Voids 3 2 2 # Bowel Movements 0 Physical Exam NECK: Supple, trachea midline. No JVD or lymphadenopathy. CARDIOVASCULAR: Regular rate and rhythm without murmurs, gallops, or rubs. RESPIRATORY: Breath sounds equal bilaterally. No accessory muscle use. GASTROINTESTINAL: Abdomen soft, non-tender, nondistended. Laboratory Laboratory Tests Test 01/05/17 01/06/17 12:15 04:09 White Blood Count 8.7 TH/MM3 10.7 TH/MM3 Red Blood Count 4.88 MIL/MM3 4.61 MIL/MM3 Hemoglobin 14.5 GM/DL 13.8 GM/DL Hematocrit 42.3 % 40.9 % Mean Corpuscular Volume 86.8 FL 88.8 FL Mean Corpuscular Hemoglobin 29.7 PG 30.0 PG Mean Corpuscular Hemoglobin 34.2 % 33.9 % Concent Red Cell Distribution Width 13.4 % 14.2 % Platelet Count 164 TH/MM3 152 TH/MM3 Mean Platelet Volume 9.2 FL 9.7 FL Prothrombin Time 11.2 SEC Prothromb Time International 1.0 RATIO Ratio Activated Partial 29.3 SEC Thromboplast Time Neutrophils (%) (Auto) 77.2 % Lymphocytes (%) (Auto) 14.6 % Monocytes (%) (Auto) 6.7 % Eosinophils (%) (Auto) 1.0 % Basophils (%) (Auto) 0.5 % Neutrophils # (Auto) 8.2 TH/MM3 Lymphocytes # (Auto) 1.6 TH/MM3 Monocytes # (Auto) 0.7 TH/MM3 Eosinophils # (Auto) 0.1 TH/MM3 Basophils # (Auto) 0.1 TH/MM3 CBC Comment DIFF FINAL Differential Comment Sodium Level 142 MEQ/L Potassium Level 4.6 MEQ/L Chloride Level 108 MEQ/L Carbon Dioxide Level 29.6 MEQ/L Anion Gap 4 MEQ/L Blood Urea Nitrogen 17 MG/DL Creatinine 0.84 MG/DL Estimat Glomerular Filtration 71 ML/MIN Rate Random Glucose 112 MG/DL Calcium Level 8.5 MG/DL Total Creatine Kinase 35 U/L Triglycerides Level 76 MG/DL Cholesterol Level 155 MG/DL LDL Cholesterol 107 MG/DL HDL Cholesterol 32.8 MG/DL Cholesterol/HDL Ratio 4.72 RATIO Imaging Last Impressions Myocardial Perfusion Scan Nuc Med 01/05/17 0000 Signed Impressions: Service Date/Time: Thursday, January 05, 2017 10:02 - CONCLUSION: 1. Normal wall motion end calculated ejection fraction. 2. Mild perfusion defect involving the lateral wall with reversibility. This could indicate mild ischemia. RISK CATEGORY: Intermediate (1-3%% Annual Mortality Rate) Timbo Corcoran MD Chest X-Ray 01/04/17 1134 Signed Impressions: Service Date/Time: Wednesday, January 04, 2017 11:46 - CONCLUSION: No acute disease. Chandu Maria MD Assessment and Plan Assessment and Plan NSTEMI - PCI DANIELA mid LAD. asa plavix statin bb ok for DC outpatient echo FU in 2 weeks Cory Carter MD Jan 06, 2017 08:04
[2017-01-06] MEDS: SODIUM CHLORIDE 0.9% FLUSH 10 ML FLUSH IV FLUSH SCH (08:05)
--- NOTE | 2017-01-06 08:57 | EKG ---
Date Performed: 01/06/2017 Time Performed: 06:04:40 PTAGE: 51 years EKG: Sinus rhythm Poor R wave progression - probable normal variant Anterior T wave changes are nonspecific Low QRS vo ltages in precordial leads Borderline ECG PREVIOUS TRACING : 01/04/2017 16.53 Compared to prior tracing no significant change DOCTOR: Kip Lyle Interpretating Date/Time 01/06/2017 08:53:52
--- NOTE | 2017-01-06 08:58 | EKG ---
Date Performed: 01/04/2017 Time Performed: 14:11:57 PTAGE: 51 years EKG: Sinus rhythm MODERATE INTRAVENTRICULAR CONDUCTION DELAY BORDERLINE ECG PREVIOUS TRACING : 05/13/2015 12.26 Compared to prior tracing no significant change DOCTOR: Damion Tanner Interpretating Date/Time 01/06/2017 08:54:22
[2017-01-06] MEDS ORDERED: LISINOPRIL 5 MG TAB PO SCH (09:00)
[2017-01-06] MEDS ORDERED: CLOPIDOGREL 75 MG TAB PO SCH (09:00)
[2017-01-06] MEDS ORDERED: ASPIRIN 81 MG CHEW TAB PO SCH (09:00)
--- NOTE | 2017-01-06 09:14 | EKG ---
Date Performed: 01/04/2017 Time Performed: 11:20:20 PTAGE: 51 years EKG: Sinus rhythm MODERATE INTRAVENTRICULAR CONDUCTION DELAY BORDERLINE ECG INTERPRETATION BASED ON A DEFAULT AGE OF 4 0 YEARS Compared to the PREVIOUS TRACING from 01/06/17, no significant change DOCTOR: Damion Tanner Interpretating Date/Time 01/06/2017 09:04:21
[2017-01-06] MEDS ORDERED: LORATADINE 10 MG TAB PO ONE (09:15)
[2017-01-06] MEDS ORDERED: RESP: ALBUTEROL 2.5 MG/IPRATROPIUM 0.5 MG NEB (SCH) NEB ONE (09:15)
--- NOTE | 2017-01-06 09:23 | HHI.PR ---
Subjective Remarks Pt reports that overall she is feeling much better She still has some minimal chest tightness and complains of a cough and some sinus congestion which she relates to allergies Pt feels slightly SOB with speaking but states that this is much improved and she has been able to ambulate without difficulty in her room Objective Vitals Vital Signs Date Time Temp Pulse Resp B/P Pulse Ox O2 Delivery O2 Flow Rate FiO2 01/06/17 08:37 20 01/06/17 08:00 97.9 83 16 123/76 96 01/06/17 08:00 89 01/06/17 04:52 96 01/06/17 04:39 98.0 79 20 102/62 99 01/06/17 00:00 98.0 75 20 153/77 99 01/05/17 20:30 98.0 83 20 105/73 99 01/05/17 16:55 95 Room Air 01/05/17 14:16 97.1 77 20 156/71 99 01/05/17 12:00 97.1 77 18 156/77 01/05/17 01/05/17 01/06/17 14:59 22:59 06:59 Intake Total 300 ml 1080 ml Balance 300 ml 1080 ml Intake Oral 300 ml 480 ml IV Total 600 ml # Voids 2 2 Result Diagram: 01/06/17 0409 01/06/17 0409 Other Results Laboratory Tests Test 01/04/17 01/04/17 01/04/17 01/05/17 11:20 14:03 17:10 04:47 White Blood Count 8.9 TH/MM3 Red Blood Count 5.09 MIL/MM3 Hemoglobin 14.7 GM/DL Hematocrit 44.2 % Mean Corpuscular Volume 86.9 FL Mean Corpuscular Hemoglobin 28.9 PG Mean Corpuscular Hemoglobin 33.3 % Concent Red Cell Distribution Width 13.5 % Platelet Count 186 TH/MM3 Mean Platelet Volume 9.8 FL Neutrophils (%) (Auto) 57.9 % Lymphocytes (%) (Auto) 31.0 % Monocytes (%) (Auto) 7.6 % Eosinophils (%) (Auto) 2.0 % Basophils (%) (Auto) 1.5 % Neutrophils # (Auto) 5.1 TH/MM3 Lymphocytes # (Auto) 2.8 TH/MM3 Monocytes # (Auto) 0.7 TH/MM3 Eosinophils # (Auto) 0.2 TH/MM3 Basophils # (Auto) 0.1 TH/MM3 CBC Comment DIFF FINAL Differential Comment Prothrombin Time 10.9 SEC Prothromb Time International 1.0 RATIO Ratio Activated Partial 29.4 SEC Thromboplast Time Sodium Level 142 MEQ/L Potassium Level 4.0 MEQ/L Chloride Level 109 MEQ/L Carbon Dioxide Level 26.8 MEQ/L Anion Gap 6 MEQ/L Blood Urea Nitrogen 14 MG/DL Creatinine 0.78 MG/DL Estimat Glomerular Filtration 78 ML/MIN Rate Random Glucose 76 MG/DL Calcium Level 9.2 MG/DL Total Bilirubin 0.6 MG/DL Aspartate Amino Transf 13 U/L (AST/SGOT) Alanine Aminotransferase 19 U/L (ALT/SGPT) Alkaline Phosphatase 96 U/L Total Creatine Kinase 81 U/L 66 U/L 72 U/L Troponin I LESS THAN 0.02 LESS THAN 0.02 LESS THAN 0.02 NG/ML NG/ML NG/ML Total Protein 7.3 GM/DL Albumin 3.7 GM/DL Thyroid Stimulating Hormone 0.160 uIU/ML 3rd Gen Triglycerides Level 111 MG/DL Cholesterol Level 152 MG/DL LDL Cholesterol 97 MG/DL HDL Cholesterol 33.3 MG/DL Cholesterol/HDL Ratio 4.56 RATIO Test 01/05/17 01/06/17 12:15 04:09 White Blood Count 8.7 TH/MM3 10.7 TH/MM3 Red Blood Count 4.88 MIL/MM3 4.61 MIL/MM3 Hemoglobin 14.5 GM/DL 13.8 GM/DL Hematocrit 42.3 % 40.9 % Mean Corpuscular Volume 86.8 FL 88.8 FL Mean Corpuscular Hemoglobin 29.7 PG 30.0 PG Mean Corpuscular Hemoglobin 34.2 % 33.9 % Concent Red Cell Distribution Width 13.4 % 14.2 % Platelet Count 164 TH/MM3 152 TH/MM3 Mean Platelet Volume 9.2 FL 9.7 FL Prothrombin Time 11.2 SEC Prothromb Time International 1.0 RATIO Ratio Activated Partial 29.3 SEC Thromboplast Time Neutrophils (%) (Auto) 77.2 % Lymphocytes (%) (Auto) 14.6 % Monocytes (%) (Auto) 6.7 % Eosinophils (%) (Auto) 1.0 % Basophils (%) (Auto) 0.5 % Neutrophils # (Auto) 8.2 TH/MM3 Lymphocytes # (Auto) 1.6 TH/MM3 Monocytes # (Auto) 0.7 TH/MM3 Eosinophils # (Auto) 0.1 TH/MM3 Basophils # (Auto) 0.1 TH/MM3 CBC Comment DIFF FINAL Differential Comment Sodium Level 142 MEQ/L Potassium Level 4.6 MEQ/L Chloride Level 108 MEQ/L Carbon Dioxide Level 29.6 MEQ/L Anion Gap 4 MEQ/L Blood Urea Nitrogen 17 MG/DL Creatinine 0.84 MG/DL Estimat Glomerular Filtration 71 ML/MIN Rate Random Glucose 112 MG/DL Calcium Level 8.5 MG/DL Total Creatine Kinase 35 U/L Triglycerides Level 76 MG/DL Cholesterol Level 155 MG/DL LDL Cholesterol 107 MG/DL HDL Cholesterol 32.8 MG/DL Cholesterol/HDL Ratio 4.72 RATIO Imaging Last Impressions Myocardial Perfusion Scan Nuc Med 01/05/17 0000 Signed Impressions: Service Date/Time: Thursday, January 05, 2017 10:02 - CONCLUSION: 1. Normal wall motion end calculated ejection fraction. 2. Mild perfusion defect involving the lateral wall with reversibility. This could indicate mild ischemia. RISK CATEGORY: Intermediate (1-3%% Annual Mortality Rate) Timbo Corcoran MD Chest X-Ray 01/04/17 1134 Signed Impressions: Service Date/Time: Wednesday, January 04, 2017 11:46 - CONCLUSION: No acute disease. Chandu Maria MD Objective Remarks General: NAD, AAOx3 Chest: CTA Cardiac: Regular Abd: +BS, soft ND/NT Ext: No edema A/P Problem List: (1) Chest discomfort Status: Acute Plan: - Pt is a 51 y/o WF with hypertension, hyperlipidemia, DM type 1, and tobacco use who presented to the ED in [place] on 01/04/17 with complaints of chest pain. - Serial CE and EKGs were negative. - Lexiscan (01/05) --> Mild perfusion defect involving the lateral wall with reversibility. - Pt was transferred to [facility] on 01/05 and underwent LHC with Dr Carter which revealed severe mid LAD CAD and a DANIELA was placed. - Pt has been started on Plavix and ASA, Metoprolol 12.5mg po BID, and Pravachol 80mg po daily. - Cont. Lisinopril dose decreased to 5mg po daily - Cardiology has cleared the pt for discharge and recommended outpt 2D echo. - Pt today with some chest tightness and congestion and would like to try a breathing treatment (she has this has home as well) - We will do a one time Duoneb treatment and give a dose of Claritin prior to discharge. - Pt will need to followup with her PCP, Dr. Marko Apple, in 1 week - Pt will need to followup with Cardiology, Dr. Carter, in 2 weeks. Assessment and Plan Patient examined. Assessment and plan formulated with Melba Mattson PA-C. I agree with the above. Melba Mattson Jan 06, 2017 09:23 Khoi Sandoval DO Jan 10, 2017 00:57
[2017-01-06] MEDS ORDERED: LISI10TA3 PO (09:24)
[2017-01-06] MEDS ORDERED: PLAV75TA29 PO (09:24)
[2017-01-06] MEDS ORDERED: ASPI81CH25 PO (09:24)
[2017-01-06] MEDS ORDERED: METO25TA3 PO (09:24)
--- NOTE | 2017-01-06 09:27 | HHI.DCPOC ---
Discharge Care Plan Diagnosis: (1) CAD (coronary artery disease) (2) Chest pain Goals to Promote Your Health - New Medications Include: - Plavix 75mg once daily - Metoprolol 12.5mg twice daily - Aspirin 81mg once daily - Changed Medications Include: - Lisinopril dose was decreased to 5mg once daily - Patient will need to followup with Cardiology, Dr. Carter, in 2 weeks, call for an appt. - Patient will need to followup with her PCP, Dr. Apple, in 1 week, call for an appt. Directions to Meet Your Goals Take your medications as prescribed Follow your dietary instruction Follow activity as directed Keep your appointments as scheduled Take your immunizations and boosters as scheduled If your symptoms worsen call your PCP, if no PCP go to Urgent Care Center or Emergency Room Smoking is Dangerous to Your Health. Avoid second hand smoke Call the 24-hour hour crisis hotline for domestic abuse at Melba Mattson Jan 06, 2017 09:27 Khoi Sandoval DO Jan 10, 2017 00:58
[2017-01-06] MEDS ORDERED: IOHEXOL 350 MG/ML 50 ML BTL (for Cath Lab) OTHER ONE (14:00)
[2017-01-06] MEDS ORDERED: IOHEXOL 350 MG/ML 100 ML BTL (for Cath Lab) OTHER ONE (14:00)
== END 2017-01-06 13:40 | disposition home or self-care (01) | DRG 247 ==
LOC: PHED 11:09 → PHEDA 13:04 → PH3A 14:40 → OBSVTOIN 01-05 12:27 → HCIS 01-05 16:53 → HCIN 01-05 19:53
PROVIDERS: ADMIT Hospitalist; ATTEND Hospitalist
PROC: 027034Z Dilation of Coronary Artery, One Artery with Drug-eluting Intraluminal Device, Percutaneous Approach (ICD-10-PCS; principal; 2017-01-05)
PROC: 4A023N7 Measurement of Cardiac Sampling and Pressure, Left Heart, Percutaneous Approach (ICD-10-PCS; 2017-01-05)
PROC: B2111ZZ Fluoroscopy of Multiple Coronary Arteries using Low Osmolar Contrast (ICD-10-PCS; 2017-01-05)
DX: I25.110 Atherosclerotic heart disease of native coronary artery with unstable angina pectoris (principal); K31.84 Gastroparesis; E10.43 Type 1 diabetes mellitus with diabetic autonomic (poly)neuropathy; E03.9 Hypothyroidism, unspecified; I10 Essential (primary) hypertension; Z79.4 Long term (current) use of insulin; Z96.41 Presence of insulin pump (external) (internal); F17.210 Nicotine dependence, cigarettes, uncomplicated; E78.5 Hyperlipidemia, unspecified; D86.9 Sarcoidosis, unspecified; F41.9 Anxiety disorder, unspecified; F32.9 Major depressive disorder, single episode, unspecified
CPT/HCPCS: 71010; 78452; 80048; 80053; 80061; 82550; 82948; 84443; 84484; 85025; 85027; 85610; 85730; 92928; 93005; 93017; 93454; 94664; A9502; C1725; C1769; C1874; C1887; C1893; G0378; J0583; J1644; J2250; J2405; J2785; J3010; J7030; Q9967

== ENCOUNTER 2017-01-15 12:02 | Observation (INO) | payer OTHER ==
[~2017-01-15] VITALS: Ht 154.9 cm; Wt 100.0 kg
[~2017-01-15 12:02] MED LIST changes: +ASPI81CH25 PO; -GUAI100S6 PO; -LISI-357 PO; +LISI10TA3 PO; +METO25TA3 PO; -NOVOLOGP2 IMPLANT; -PERC5TAB12 PO; +PLAV75TA29 PO; -PROM25TA5 PO; -SYNT25TA PO; +SYNT300T PO; -TAMS0.4C67 PO; +VITA20003 PO; -VITA500T49 PO; +ZOCO40TA PO
[2017-01-15 12:05] VITALS: BP 176/78; PULSE 84; RESP 20; TEMP 98.2; O2SAT 98
[2017-01-15 12:25] VITALS: BP_SYST 128; BP_SYST 179; BP_DIAS 59; BP_DIAS 84; PULSE 80; RESP 17; RESP 18; O2SAT 99
[2017-01-15] MEDS ORDERED: ASPIRIN 81 MG CHEW TAB PO ONE (12:30)
[2017-01-15] MEDS ORDERED: SODIUM CHLORIDE 0.9% FLUSH 10 ML FLUSH IVF PRN (12:30)
[2017-01-15] MEDS ORDERED: NITROGLYCERIN 0.4 MG SL 25 TABS/BTL SL ONE (12:30)
[2017-01-15 12:51] LABS: BASOPHIL # 0.1 TH/MM3 (0-0.2); BASOPHIL % 1.1 % (0.0-2.0); EOSINOPHIL # 0.2 TH/MM3 (0-0.4); EOSINOPHIL % 2.3 % (0.0-4.0); HEMATOCRIT 42.9 % (35.0-46.0); HEMO FLAGS DIFF FINAL; LYMPH % 29.5 % (9.0-44.0); LYMPHOCYTE # 2.5 TH/MM3 (1.0-4.8); MEAN CELL VOLUME 88.9 FL (80.0-100.0); MEAN CORPUSCULAR HEMOGLOBIN 30.5 PG (27.0-34.0); MEAN CORPUSCULAR HGB CONC 34.3 % (32.0-36.0); MONO % 8.4 % (0.0-8.0); NEUT % 58.7 % (16.0-70.0); PLATELET COUNT 181 TH/MM3 (150-450); RED BLOOD COUNT 4.83 MIL/MM3 (4.00-5.30); RED CELL DISTRIBUTION WIDTH 13.9 % (11.6-17.2); WHITE BLOOD COUNT 8.4 TH/MM3 (4.0-11.0)
--- NOTE | 2017-01-15 12:57 | PD ---
HPI Chief Complaint: Chest Pain Time Seen by Provider: 12:12 Travel History International Travel<30 days: No Contact w/Intl Traveler<30days: No Traveled to known affect area: No History of Present Illness HPI This is a 51-year-old female who presents to the emergency department with chest discomfort in the left side of her chest that's been present ever since her catheterization, intermittent, feeling like a stabbing in the left chest under her left breast radiating to her left arm with some numbness in her arm and pain in her arm. She says sometimes is exertional but sometimes it does not. She does say that after her catheterization she felt much better but then she's been having good days and bad days ever since. She does feel shortness of breath from time to time. Patient had a cardiac catheterization on January [address] Avila. She had a 75-80% tubular stenosis of the mid LAD which was stented. She has not had her follow-up appointment yet. PFSH Past Medical History Asthma: No Heart Rhythm Problems: No Cardiovascular Problems: Yes High Cholesterol: Yes Chest Pain: Yes COPD: No Cerebrovascular Accident: No Diabetes: Yes Patient Takes Glucophage: No Diminished Hearing: No Gastrointestinal Disorders: Yes (gastroparesis) GERD: Yes Genitourinary: No Headaches: Yes Hiatal Hernia: No Hypertension: Yes Kidney Stones: Yes Musculoskeletal: No Neurologic: Yes Reproductive: No Respiratory: Yes Immunizations Current: No Migraines: No Seizures: No Sleep Apnea: No Thyroid Disease: Yes (HYPO) Ulcer: No Tetanus Vaccination: > 5 Years ?: Not Menopausal: Yes : 7 Para: 2 Miscarriage: 5 Tubal Ligation: Yes Past Surgical History Abdominal Surgery: Yes (HERNIA REPAIR, INSULING PUMP PLACEMENT) Body Medical Devices: INSULIN PUMP Section: Yes (x 2) Cholecystectomy: Yes Insulin Pump: Yes (NOVOLOG basal rate varies) Other Surgery: Yes (abcess to pelvic wall ) Social History Alcohol Use: No Tobacco Use: Yes (1 pk q 3 days) Substance Use: No Allergies-Medications (Allergen,Severity, Reaction): Coded Allergies: ciprofloxacin (Unverified Allergy, Severe, ELEVATED BLOOD SUGAR, 01/15/17) gabapentin (Unverified Allergy, Intermediate, HIGH BLOOD SUGARS, 01/15/17) metoclopramide (Unverified Allergy, Mild, FLIPS OUT, 01/15/17) Reported Meds & Prescriptions Reported Meds & Active Scripts Active Metoprolol Tartrate 25 Mg Tab 12.5 Mg PO Q12HR Plavix (Clopidogrel Bisulfate) 75 Mg Tab 75 Mg PO DAILY Aspirin Low Strength (Aspirin) 81 Mg Chew 81 Mg PO DAILY Lisinopril 10 Mg Tab 5 Mg PO DAILY Reported Vitamin D (Cholecalciferol) 2,000 Unit Tab 1 Tab PO DAILY Zocor (Simvastatin) 40 Mg Tab 40 Mg PO DAILY Synthroid (Levothyroxine Sodium) 300 Mcg Tab 300 Mcg PO 6 DAYS A WEEK Review of Systems Except as stated in HPI: all other systems reviewed are Neg Physical Exam Narrative GENERAL:Well appearing, no acute distress SKIN: Focused skin assessment warm and dry. HEAD: Atraumatic. Normocephalic. EYES: Pupils equal and round. No injection or drainage. ENT: Moist mucous membranes NECK: Trachea midline. CARDIOVASCULAR: Regular rate and rhythm. No murmur appreciated. RESPIRATORY: Clear to auscultation. Breath sounds equal bilaterally. GASTROINTESTINAL: Abdomen soft, non-tender, nondistended. MUSCULOSKELETAL: No obvious deformities. NEUROLOGICAL: Awake and alert. No obvious cranial nerve deficits. Moving all extremities. PSYCHIATRIC: Anxious, intermittently tearful Data Data Last Documented VS Vital Signs Date Time Temp Pulse Resp B/P (MAP) Pulse Ox O2 Delivery O2 Flow Rate FiO2 01/15/17 12:25 99 Room Air 01/15/17 12:25 80 18 179/84 (115) 128/59 (82) 01/15/17 12:05 98.2 Orders Orders Electrocardiogram (01/15/17 12:25) Complete Blood Count With Diff (01/15/17 12:25) Comprehensive Metabolic Panel (01/15/17 12:25) Troponin I (01/15/17 12:25) Chest, Single Ap (01/15/17 12:25) Ecg Monitoring (01/15/17 12:25) Bilateral Bp Monitoring (01/15/17 12:25) Iv Access Insert/Monitor (01/15/17 12:25) Oximetry (01/15/17 12:25) Oxygen Administration (01/15/17 12:25) Aspirin Chew (Aspirin Chew) (01/15/17 12:30) Sodium Chloride 0.9% Flush (Ns Flush) (01/15/17 12:30) Nitroglycerin Sl (Nitrostat Sl) (01/15/17 12:30) Admit Order (Ed Use Only) (01/15/17 13:43) Labs Laboratory Tests Test 01/15/17 12:30 White Blood Count 8.4 TH/MM3 Red Blood Count 4.83 MIL/MM3 Hemoglobin 14.7 GM/DL Hematocrit 42.9 % Mean Corpuscular Volume 88.9 FL Mean Corpuscular Hemoglobin 30.5 PG Mean Corpuscular Hemoglobin Concent 34.3 % Red Cell Distribution Width 13.9 % Platelet Count 181 TH/MM3 Mean Platelet Volume 10.4 FL Neutrophils (%) (Auto) 58.7 % Lymphocytes (%) (Auto) 29.5 % Monocytes (%) (Auto) 8.4 % Eosinophils (%) (Auto) 2.3 % Basophils (%) (Auto) 1.1 % Neutrophils # (Auto) 5.0 TH/MM3 Lymphocytes # (Auto) 2.5 TH/MM3 Monocytes # (Auto) 0.7 TH/MM3 Eosinophils # (Auto) 0.2 TH/MM3 Basophils # (Auto) 0.1 TH/MM3 CBC Comment DIFF FINAL Differential Comment Blood Urea Nitrogen 13 MG/DL Creatinine 0.88 MG/DL Random Glucose 117 MG/DL Total Protein 7.5 GM/DL Albumin 3.6 GM/DL Calcium Level 9.8 MG/DL Alkaline Phosphatase 106 U/L Aspartate Amino Transf (AST/SGOT) 10 U/L Alanine Aminotransferase (ALT/SGPT) 17 U/L Total Bilirubin 0.4 MG/DL Sodium Level 143 MEQ/L Potassium Level 4.3 MEQ/L Chloride Level 105 MEQ/L Carbon Dioxide Level 30.5 MEQ/L Anion Gap 8 MEQ/L Estimat Glomerular Filtration Rate 68 ML/MIN Troponin I LESS THAN 0.02 NG/ML MDM Medical Decision Making Medical Screen Exam Complete: Yes Emergency Medical Condition: Yes Medical Record Reviewed: Yes (patient had a catheterization January [address] avila and had a stent placed) Interpretation(s) EKG: Normal sinus rhythm, no ST changes No leukocytosis Electrolytes are reassuring Troponin is normal Chest x-ray: No acute process Differential Diagnosis Acute coronary syndrome, stent occlusion, costochondritis, radiculopathy, anxiety Narrative Course This is a 51-year-old female who presents to the emergency department with chest discomfort that's been going on since prior to having a stent placed on January 05. The nature of her chest pain seems to of change since the stent was placed. She was concerned today because she was short of breath and the pain seems worse. Her EKG is reassuring. She was placed on a monitor and an IV was established. Labs are obtained which are all reassuring. She is given aspirin and nitroglycerin. Initial troponin is negative. I spoke to Dr. Moses and the physician family assistant in the chest pain center and they requested the patient be admitted to the hospitalist for serial enzymes and cardiology consultation. Physician Communication Physician Communication Discussed with Dr. Vidal and Dr. Moses Diagnosis Primary Impression: Chest discomfort Admitting Information Admitting Physician Requests: Observation Feli Ceja MD Jan 15, 2017 12:57
[2017-01-15 13:09] LABS: ALT (GPT) 17 U/L (10-53); ANION GAP 8 MEQ/L (5-15); AST (GOT) 10 U/L (15-37); BICARBONATE 30.5 MEQ/L (21.0-32.0); BLOOD UREA NITROGEN 13 MG/DL (7-18); CHLORIDE 105 MEQ/L (98-107); GLOMERULAR FILTRATION RATE 68 ML/MIN (>89); POTASSIUM 4.3 MEQ/L (3.5-5.1); SODIUM (NA) 143 MEQ/L (136-145)
[2017-01-15 13:13] LABS: ALKALINE PHOSPHATASE 106 U/L (45-117); TOTAL BILIRUBIN ADULT 0.4 MG/DL (0.2-1.0)
--- NOTE | 2017-01-15 13:13 | RADRPT ---
EXAM DATE/TIME: 01/15/2017 12:39 [facility] COMPARISON: CHEST SINGLE AP, January 04, 2017, 11:46. INDICATIONS : Chest pain MEDICAL HISTORY : Hypertension. Diabetes mellitus type 1. SURGICAL HISTORY : Cholecystectomy. Tubal ligation. ENCOUNTER: Initial ACUITY: 4 - 6 days PAIN SCORE: 5/10 LOCATION: Bilateral chest FINDINGS: A single view of the chest demonstrates the lungs to be symmetrically aerated without evidence of mas s, infiltrate or effusion. The cardiomediastinal contours are unremarkable. Osseous structures are intact. CONCLUSION: Normal examination. Jyoti Davis MD on January 15, 2017 at 13:11 Board Certified Radiologist. This report was verified electronically.
[2017-01-15] MEDS ORDERED: NITROGLYCERIN 0.4 MG SL 25 TABS/BTL SL PRN (15:00)
--- NOTE | 2017-01-15 15:19 | HHI.HP ---
HPI Service [facility] Hospitalists Primary Care Physician Marko Apple DO Admission Diagnosis chest pain Chief Complaint: CP Travel History International Travel<30 Days: No Contact w/Intl Traveler <30 Da: No Traveled to Known Affected Are: No History of Present Illness Pt is 51 yo dm 1, htn, cad who presents with left cp and left shoulder pain. She underwent LHC recently on 01/05 after presenting with cp and having a positive lexiscan. Pt had DANIELA to mid lad for 75-80% lesion. She was discharged on asa/plavix/bb/jing/statin and she claims to be compliant with these meds. She reportedly has a prn inhaler as well . Denies any wheezing but had mild cough. Today awoke with bg in 300s and left side cp radiating to LUE. She thinks it was relieved with ntg or asa.She changed her story a few times and at first it sounded like the pain in left chest/shoulder was reproducible with movement. No n/v and no diaphoresis. Seems to claim trouble getting a deep breath. Denies copd/asthma hx and no f/c. Review of Systems Other left cp/lue pain Past Family Social History Past Medical History dm 1..insulin pump htn hyperlipidemia sarcoidosis dx by LN bx cad. LAD stent 01/05 hypothyroidism Reported Medications Metoprolol Tartrate 25 Mg Tab 12.5 Mg PO Q12HR Plavix (Clopidogrel Bisulfate) 75 Mg Tab 75 Mg PO DAILY Aspirin Low Strength (Aspirin) 81 Mg Chew 81 Mg PO DAILY Lisinopril 10 Mg Tab 5 Mg PO DAILY Reported Vitamin D (Cholecalciferol) 2,000 Unit Tab 1 Tab PO DAILY Zocor (Simvastatin) 40 Mg Tab 40 Mg PO DAILY Synthroid (Levothyroxine Sodium) 300 Mcg Tab 300 Mcg PO 6 DAYS A WEEK Allergies: Coded Allergies: ciprofloxacin (Unverified Allergy, Severe, ELEVATED BLOOD SUGAR, 01/15/17) gabapentin (Unverified Allergy, Intermediate, HIGH BLOOD SUGARS, 01/15/17) metoclopramide (Unverified Allergy, Mild, FLIPS OUT, 01/15/17) Family History nc Social History tob less 1ppd but quit 3weeks ago Physical Exam Vital Signs nad heart reg lung cta abd s/nt ext no edema no TTP over chest wall. Vital Signs Date Time Temp Pulse Resp B/P (MAP) Pulse Ox O2 Delivery O2 Flow Rate FiO2 8/26/17 12:25 99 Room Air 01/15/17 12:25 80 18 179/84 (115) 99 Room Air 128/59 (82) 01/15/17 12:25 17 99 Room Air 01/15/17 12:05 98.2 84 20 176/78 (110) 98 Room Air Laboratory Laboratory Tests Test 01/15/17 12:30 White Blood Count 8.4 Red Blood Count 4.83 Hemoglobin 14.7 Hematocrit 42.9 Mean Corpuscular Volume 88.9 Mean Corpuscular Hemoglobin 30.5 Mean Corpuscular Hemoglobin Concent 34.3 Red Cell Distribution Width 13.9 Platelet Count 181 Mean Platelet Volume 10.4 Neutrophils (%) (Auto) 58.7 Lymphocytes (%) (Auto) 29.5 Monocytes (%) (Auto) 8.4 Eosinophils (%) (Auto) 2.3 Basophils (%) (Auto) 1.1 Neutrophils # (Auto) 5.0 Lymphocytes # (Auto) 2.5 Monocytes # (Auto) 0.7 Eosinophils # (Auto) 0.2 Basophils # (Auto) 0.1 CBC Comment DIFF FINAL Differential Comment Blood Urea Nitrogen 13 Creatinine 0.88 Random Glucose 117 Total Protein 7.5 Albumin 3.6 Calcium Level 9.8 Alkaline Phosphatase 106 Aspartate Amino Transf (AST/SGOT) 10 Alanine Aminotransferase (ALT/SGPT) 17 Total Bilirubin 0.4 Sodium Level 143 Potassium Level 4.3 Chloride Level 105 Carbon Dioxide Level 30.5 Anion Gap 8 Estimat Glomerular Filtration Rate 68 Troponin I LESS THAN 0.02 Result Diagram: 01/15/17 1230 01/15/17 1230 Caprini VTE Risk Assessment Caprini VTE Risk Assessment: No/Low Risk (score <= 1) Caprini Risk Assessment Model Point Value = 1 Point Value = 2 Point Value = 3 Point Value = 5 Age 41-60 Minor surgery BMI > 25 kg/m2 Swollen legs Varicose veins or History of unexplained or recurrent spontaneous Oral contraceptives or hormone replacement Sepsis (< 1 month) Serious lung disease, including pneumonia (< 1 month) Abnormal pulmonary function Acute myocardial infarction Congestive heart failure (< 1 month) History of inflammatory bowel disease Medical patient at bed rest Age 61-74 Arthroscopic surgery Major open surgery (> 45 min) Laparoscopic surgery (> 45 min) Malignancy Confined to bed (> 72 hours) Immobilizing plaster cast Central venous access Age >= 75 History of VTE Family history of VTE Factor V Leiden Prothrombin [id number] Lupus anticoagulant Anticardiolipin antibodies Elevated serum homocysteine Heparin-induced thrombocytopenia Other congenital or acquired thrombophilia Stroke (< 1 month) Elective arthroplasty Hip, pelvis, or leg fracture Acute spinal cord injury (< 1 month) Prophylaxis Regimen Total Risk Factor Score Risk Level Prophylaxis Regimen 0-1 Low Early ambulation 2 Moderate Order ONE of the following: *Sequential Compression Device (SCD) *Heparin 5000 units SQ BID 3-4 Higher Order ONE of the following medications: *Heparin 5000 units SQ TID *Enoxaparin/Lovenox 40 mg SQ daily (WT < 150 kg, CrCl > 30 mL/min) *Enoxaparin/Lovenox 30 mg SQ daily (WT < 150 kg, CrCl > 10-29 mL/min) *Enoxaparin/Lovenox 30 mg SQ BID (WT < 150 kg, CrCl > 30 mL/min) AND/OR *Sequential Compression Device (SCD) 5 or more Highest Order ONE of the following medications: *Heparin 5000 units SQ TID (Preferred with Epidurals) *Enoxaparin/Lovenox 40 mg SQ daily (WT < 150 kg, CrCl > 30 mL/min) *Enoxaparin/Lovenox 30 mg SQ daily (WT < 150 kg, CrCl > 10-29 mL/min) *Enoxaparin/Lovenox 30 mg SQ BID (WT < 150 kg, CrCl > 30 mL/min) AND *Sequential Compression Device (SCD) Assessment and Plan Problem List: (1) Chest pain ICD Codes: R07.9 - Chest pain, unspecified Status: Acute Plan: Pt is 51 yo dm 1, htn, cad who presents with left cp and left shoulder pain. She underwent LHC recently on 01/05 after presenting with cp and having a positive lexiscan. Pt had DANIELA to mid lad for 75-80% lesion. She was discharged on asa/plavix/bb/jing/statin and she claims to be compliant with these meds. She reportedly has a prn inhaler as well . Denies any wheezing but had mild cough. Today awoke with bg in 300s and left side cp radiating to LUE. She thinks it was relieved with ntg or asa.She changed her story a few times and at first it sounded like the pain in left chest/shoulder was reproducible with movement. No n/v and no diaphoresis. Seems to claim trouble getting a deep breath. Denies copd/asthma hx and no f/c. observe overnight ask her manager demand to evaluate her. cont bb/asa/plavix/statin/jing telemetry plus CE dvt prophylaxis check tsh/free t4...recent abnormal lab noted. prn ntg pt has not f/u after [facility] yet to her manager demand for echo. (2) CAD (coronary artery disease) ICD Codes: I25.10 - Atherosclerotic heart disease of [place] coronary artery without angina pectoris Status: Chronic (3) HTN (hypertension) ICD Codes: I10 - Essential (primary) hypertension Status: Chronic (4) Hypothyroid ICD Codes: E03.9 - Hypothyroidism, unspecified Status: Chronic Sam Vidal MD Jan 15, 2017 15:19
[2017-01-15 15:45] VITALS: BP 144/64; PULSE 91; RESP 20; TEMP 97.8; O2SAT 96
[2017-01-15] MEDS ORDERED: PILL SPLITTER OTHER PRN (16:00)
[2017-01-15 16:51] VITALS: PULSE 86
[2017-01-15 18:41] LABS: FREE T4 1.35 NG/DL (0.76-1.46)
[2017-01-15 18:43] LABS: CREATINE KINASE 38 U/L (26-192)
[2017-01-15 20:05] VITALS: PULSE 104
[2017-01-15 20:28] VITALS: BP 130/63; PULSE 97; RESP 18; TEMP 98.4; O2SAT 97
[2017-01-15] MEDS: METOPROLOL TARTRATE 25 MG TAB PO SCH (20:37)
[2017-01-15] MEDS ORDERED: ACETAMINOPHEN 325 MG TAB PO PRN (20:45)
[2017-01-16] VITALS (7 sets, daily range): BP systolic 101–117; BP diastolic 52–60; PULSE 67–91; RESP 18–20; TEMP 97.8–98.1; O2SAT 94–98
[2017-01-16 01:44] LABS: CREATINE KINASE 39 U/L (26-192)
[2017-01-16] MEDS ORDERED: DEXTROSE 50% IN WATER 50 ML SYRINGE ONE (06:01)
[2017-01-16] MEDS ORDERED: DEXTROSE 50% IN WATER 50 ML VIAL(D50) IV PUSH PRN (06:30)
[2017-01-16] MEDS ORDERED: GLUCAGON 1 MG/ML VIAL OTHER PRN (06:30)
[2017-01-16] MEDS ORDERED: PRAVASTATIN SOD 80 MG TAB PO SCH (09:00)
[2017-01-16] MEDS ORDERED: CLOPIDOGREL 75 MG TAB PO SCH (09:00)
[2017-01-16] MEDS ORDERED: NON-FORMULARY DRUG (Simvastatin (Zocor) 40 MG) PO SCH (09:00)
[2017-01-16] MEDS ORDERED: NON-FORMULARY DRUG (Cholecalciferol (Vitamin D) 1 TAB) PO SCH (09:00)
[2017-01-16] MEDS ORDERED: LISINOPRIL 5 MG TAB PO SCH (09:00)
[2017-01-16] MEDS ORDERED: CHOLECALCIFEROL (VIT D3) 1000 UNIT TAB PO SCH (09:00)
[2017-01-16] MEDS ORDERED: ASPIRIN 81 MG CHEW TAB PO SCH (09:00)
--- NOTE | 2017-01-16 09:15 | PD.CONS ---
HPI Consult Requested By Primary Care Physician Marko Apple DO History of Present Illness 51 y/o F with known CAD s/p PCI/DANIELA to LAD on 01/05/[address] Carter, DM, HTN who presents with left sided chest pain and left shoulder pain. She underwent LHC and PCI to LAD on 01/05/17 in the setting a positive Lexiscan. She was discharged on asa/plavix/bb/jing/statin and she claims to be compliant with these meds. No n/v/palpitations/bleeding/syncope/SOB. EKG wnl. Cardiac enzymes x 3 negative. Reports anxiety ?nicotine withdrawal. Review of Systems Consitutional: DENIES: Fatigue, Fever, Chills, Weight gain, Weight loss Eyes: DENIES: Amaurosis Fugax, Change in vision HEENT: DENIES: Lightheadedness, Change in hearing Respiratory: COMPLAINS OF: See HPI Cardiovascular: COMPLAINS OF: See HPI Gastrointestinal: DENIES: Nausea, Vomiting, Change in bowel habits, Reflux, Bloody stools, Melena Genitourinary: DENIES: Urinary incontinence, Difficulty voiding Integumentary: DENIES: Rash Neurologic: DENIES: Tingling or numbness, Memory problems, Poor Balance, Stroke symptoms Musculoskeletal: DENIES: Joint pain, Muscle pain, Limited range of motion, Back pain Psychiatric: DENIES: Anxiety, Depression, Sleep disturbances Hematologic: DENIES: Bruising tendencies, Bleeding tendencies Endocrine: DENIES: Weight gain, Weight loss, Thyroid disease Past Family Social History Allergies: Coded Allergies: ciprofloxacin (Unverified Allergy, Severe, ELEVATED BLOOD SUGAR, 01/15/17) gabapentin (Unverified Allergy, Intermediate, HIGH BLOOD SUGARS, 01/15/17) metoclopramide (Unverified Allergy, Mild, FLIPS OUT, 01/15/17) Past Medical History dm htn hyperlipidemia sarcoidosis dx by LN bx cad s/p PCI to LAD hypothyroidism Past Surgical History CAD s/p PCI to LAD Reported Medications Reported Meds & Active Scripts Active Metoprolol Tartrate 25 Mg Tab 12.5 Mg PO Q12HR Plavix (Clopidogrel Bisulfate) 75 Mg Tab 75 Mg PO DAILY Aspirin Low Strength (Aspirin) 81 Mg Chew 81 Mg PO DAILY Lisinopril 10 Mg Tab 5 Mg PO DAILY Reported Vitamin D (Cholecalciferol) 2,000 Unit Tab 1 Tab PO DAILY Zocor (Simvastatin) 40 Mg Tab 40 Mg PO DAILY Synthroid (Levothyroxine Sodium) 300 Mcg Tab 300 Mcg PO 6 DAYS A WEEK Active Ordered Medications Current Medications Medications (Trade) Dose Ordered Sig/Latrice Route Start Time Stop Time Status Last Admin (NS Flush) 2 ml UNSCH PRN IVF 01/15/17 12:30 01/15/17 12:39 (Nitrostat Sl) 0.4 mg Q5M PRN SL 01/15/17 15:00 (Aspirin Chew) 81 mg DAILY PO 01/16/17 09:00 (Plavix) 75 mg DAILY PO 01/16/17 09:00 (Prinivil) 5 mg DAILY PO 01/16/17 09:00 (Lopressor) 12.5 mg Q12HR PO 01/15/17 21:00 01/15/17 20:37 (Pill Splitter) 1 ea UNSCH PRN OTHER 01/15/17 16:00 (Vitamin D3) 2,000 units DAILY PO 01/16/17 09:00 (Pravachol) 80 mg DAILY PO 01/16/17 09:00 (Tylenol) 650 mg Q4H PRN PO 01/15/17 20:45 01/15/17 20:37 (D50w (Vial) Inj) 50 ml UNSCH PRN IV PUSH 01/16/17 06:30 Social History +Smoker Physical Exam Vital Signs Vital Signs Date Time Temp Pulse Resp B/P (MAP) Pulse Ox O2 Delivery O2 Flow Rate FiO2 01/16/17 08:21 97.8 86 18 117/60 (79) 96 01/16/17 05:45 98.1 91 18 115/52 (73) 94 01/16/17 04:03 75 01/16/17 00:12 98.0 67 18 101/53 (69) 98 01/16/17 00:00 80 01/15/17 21:40 18 01/15/17 20:28 98.4 97 18 130/63 (85) 97 01/15/17 20:05 104 01/15/17 16:51 86 01/15/17 15:45 97.8 91 20 144/64 (90) 96 01/15/17 15:37 01/15/17 12:25 99 Room Air 01/15/17 12:25 80 18 179/84 (115) 99 Room Air 128/59 (82) 01/15/17 12:25 17 99 Room Air 01/15/17 12:05 98.2 84 20 176/78 (110) 98 Room Air Physical Exam GENERAL: Well-nourished, well-developed patient. SKIN: Warm and dry. HEAD: Normocephalic. EYES: No scleral icterus. No injection or drainage. NECK: Supple, trachea midline. No JVD or lymphadenopathy. CARDIOVASCULAR: Regular rate and rhythm without murmurs, gallops, or rubs. RESPIRATORY: Breath sounds equal bilaterally. No accessory muscle use. GASTROINTESTINAL: Abdomen soft, non-tender, nondistended. EXTREMITIES: No cyanosis, or edema. NEUROLOGICAL: Awake, alert, and oriented x 3. Non-focal. Laboratory Laboratory Tests Test 01/15/17 12:30 01/15/17 17:55 01/16/17 00:30 White Blood Count 8.4 Red Blood Count 4.83 Hemoglobin 14.7 Hematocrit 42.9 Mean Corpuscular Volume 88.9 Mean Corpuscular Hemoglobin 30.5 Mean Corpuscular Hemoglobin Concent 34.3 Red Cell Distribution Width 13.9 Platelet Count 181 Mean Platelet Volume 10.4 Neutrophils (%) (Auto) 58.7 Lymphocytes (%) (Auto) 29.5 Monocytes (%) (Auto) 8.4 Eosinophils (%) (Auto) 2.3 Basophils (%) (Auto) 1.1 Neutrophils # (Auto) 5.0 Lymphocytes # (Auto) 2.5 Monocytes # (Auto) 0.7 Eosinophils # (Auto) 0.2 Basophils # (Auto) 0.1 CBC Comment DIFF FINAL Differential Comment Blood Urea Nitrogen 13 Creatinine 0.88 Random Glucose 117 Total Protein 7.5 Albumin 3.6 Calcium Level 9.8 Alkaline Phosphatase 106 Aspartate Amino Transf (AST/SGOT) 10 Alanine Aminotransferase (ALT/SGPT) 17 Total Bilirubin 0.4 Sodium Level 143 Potassium Level 4.3 Chloride Level 105 Carbon Dioxide Level 30.5 Anion Gap 8 Estimat Glomerular Filtration Rate 68 Troponin I LESS THAN 0.02 LESS THAN 0.02 LESS THAN 0.02 Total Creatine Kinase 38 39 Free Thyroxine 1.35 Thyroid Stimulating Hormone 3rd Gen 0.323 Result Diagram: 01/15/17 1230 01/15/17 1230 Imaging Last Impressions Chest X-Ray 01/15/17 1225 Signed Impressions: Service Date/Time: Sunday, January 15, 2017 12:39 - CONCLUSION: Normal examination. Jyoti Davis MD Assessment and Plan Problem List: (1) Chest discomfort ICD Codes: R07.89 - Other chest pain Status: Acute Plan: 51 y/o F with known CAD s/p PCI/DANIELA to LAD presents for evaluation of atypical chest pain. She remains afebrile, hemodynamically stable, chest pain free. Cardiac enzymes x3 negative. EKG no acute ST changes. She reports anxiety from not smoking for the last 21 days. She reports being complaint with DAPT (ASA and Plavix) as well as he other medications. Given negative cardiac markers, normal EKG and recent PCI which increases risk of having a false positive stress test I do not recommend any further cardiac work. She has a schedule appointment with Dr. Carter Tuesday. Recommendations: 1. Cont ASA and Plavix 2. Aggressive medical management for CAD 3. Start Imdur 30mg PO daily 4. Smoking cessation 5. F/U with Dr. Carter on Tuesday 6. Stable from CV standpoint to d/c home today (2) CAD (coronary artery disease) ICD Codes: I25.10 - Atherosclerotic heart disease of [place] coronary artery without angina pectoris Status: Chronic (3) Chest pain ICD Codes: R07.9 - Chest pain, unspecified Status: Acute (4) HTN (hypertension) ICD Codes: I10 - Essential (primary) hypertension Status: Chronic Moses-Kelvin Stokes MD Jan 16, 2017 09:15
[2017-01-16] MEDS: METOPROLOL TARTRATE 25 MG TAB PO SCH (10:01)
[2017-01-16] MEDS ORDERED: INSULIN PUMP SCH (10:45)
[2017-01-16] MEDS ORDERED: ISOS30TA3 PO (12:56)
--- NOTE | 2017-01-16 12:58 | HHI.DCPOC ---
Discharge Care Plan Diagnosis: (1) Chest discomfort (2) CAD (coronary artery disease) (3) Hypothyroid (4) HTN (hypertension) Goals to Promote Your Health * To prevent worsening of your condition and complications * To maintain your health at the optimal level Directions to Meet Your Goals Take your medications as prescribed Follow your dietary instruction Follow activity as directed Keep your appointments as scheduled Take your immunizations and boosters as scheduled If your symptoms worsen call your PCP, if no PCP go to Urgent Care Center or Emergency Room Smoking is Dangerous to Your Health. Avoid second hand smoke Call the 24-hour hour crisis hotline for domestic abuse at Sam Vidal MD Jan 16, 2017 12:57
--- NOTE | 2017-01-16 13:21 | HHI.PR ---
Subjective Remarks doing ok. want to go home\ bg stable now. no cp Objective Vitals heent neg heart reg lung cta abd s/nt ext no edema Vital Signs Date Time Temp Pulse Resp B/P (MAP) Pulse Ox O2 Delivery O2 Flow Rate FiO2 01/16/17 12:16 97.9 83 20 107/55 (72) 96 01/16/17 08:21 97.8 86 18 117/60 (79) 96 01/16/17 05:45 98.1 91 18 115/52 (73) 94 01/16/17 04:03 75 01/16/17 00:12 98.0 67 18 101/53 (69) 98 01/16/17 00:00 80 01/15/17 21:40 18 01/15/17 20:28 98.4 97 18 130/63 (85) 97 01/15/17 20:05 104 01/15/17 16:51 86 01/15/17 15:45 97.8 91 20 144/64 (90) 96 01/15/17 15:37 Result Diagram: 01/15/17 1230 01/15/17 1230 A/P Problem List: (1) Chest pain ICD Codes: R07.9 - Chest pain, unspecified Status: Acute Plan: Pt is 51 yo dm 1, htn, cad who presents with left cp and left shoulder pain. She underwent LHC recently on 01/05 after presenting with cp and having a positive lexiscan. Pt had DANIELA to mid lad for 75-80% lesion. She was discharged on asa/plavix/bb/jing/statin and she claims to be compliant with these meds. She reportedly has a prn inhaler as well . Denies any wheezing but had mild cough. Today awoke with bg in 300s and left side cp radiating to LUE. She thinks it was relieved with ntg or asa.She changed her story a few times and at first it sounded like the pain in left chest/shoulder was reproducible with movement. No n/v and no diaphoresis. Seems to claim trouble getting a deep breath. Denies copd/asthma hx and no f/c. cont bb/asa/plavix/statin/jing no evidence for acs seen by cardiology and imdur added f/u in [address] Carter pt feels well and wants to go home. (2) CAD (coronary artery disease) ICD Codes: I25.10 - Atherosclerotic heart disease of [place] coronary artery without angina pectoris Status: Chronic (3) HTN (hypertension) ICD Codes: I10 - Essential (primary) hypertension Status: Chronic (4) Hypothyroid ICD Codes: E03.9 - Hypothyroidism, unspecified Status: Chronic Sam Vidal MD Jan 16, 2017 13:21
[2017-01-17] MEDS ORDERED: ISOSORBIDE MONONITRATE 30 MG TAB PO SCH (07:00)
--- NOTE | 2017-01-17 11:01 | EKG ---
Date Performed: 01/16/2017 Time Performed: 00:55:21 PTAGE: 51 years EKG: Sinus rhythm NORMAL ECG PREVIOUS TRACING : 01/15/2017 18.11 Since previous tracing, no significant change noted DOCTOR: Nils Belcher Interpretating Date/Time 01/17/2017 11:00:54
--- NOTE | 2017-01-17 11:01 | EKG ---
Date Performed: 01/15/2017 Time Performed: 18:11:27 PTAGE: 51 years EKG: Sinus rhythm NORMAL ECG PREVIOUS TRACING : 01/15/2017 12.16 Since previous tracing, no significant change noted DOCTOR: Nils Belcher Interpretating Date/Time 01/17/2017 11:01:08
--- NOTE | 2017-01-17 11:04 | EKG ---
Date Performed: 01/15/2017 Time Performed: 12:16:00 PTAGE: 51 years EKG: Sinus rhythm NORMAL ECG PREVIOUS TRACING : 01/06/2017 06.04 Since previous tracing, no significant change noted DOCTOR: Nils Belcher Interpretating Date/Time 01/17/2017 11:02:46
== END 2017-01-16 15:04 | disposition home or self-care (01) ==
LOC: NEPD 12:02 → NEDA 13:45 → NEPHCDU 15:36 → NEPGCP 18:03
PROVIDERS: ADMIT Hospitalist; ATTEND Hospitalist
DX: R07.9 Chest pain, unspecified (principal); E78.5 Hyperlipidemia, unspecified; E10.43 Type 1 diabetes mellitus with diabetic autonomic (poly)neuropathy; E03.9 Hypothyroidism, unspecified; I10 Essential (primary) hypertension; I25.10 Atherosclerotic heart disease of native coronary artery without angina pectoris; K31.84 Gastroparesis; K21.9 Gastro-esophageal reflux disease without esophagitis; F06.4 Anxiety disorder due to known physiological condition; F17.203 Nicotine dependence unspecified, with withdrawal; Z79.4 Long term (current) use of insulin; Z98.61 Coronary angioplasty status; Z87.442 Personal history of urinary calculi
CPT/HCPCS: 71010; 80053; 82550; 82948; 84439; 84443; 84484; 85025; 93005; 99285; G0378

== ENCOUNTER 2017-07-18 11:53 | Observation (INO) | payer OTHER ==
[~2017-07-18 11:53] MED LIST changes: +ISOS30TA3 PO
[2017-07-18 12:36] VITALS: BP 137/69; PULSE 91; RESP 16; TEMP 98.6; O2SAT 97
--- NOTE | 2017-07-18 12:47 | PD ---
HPI Chief Complaint: Chest Pain Time Seen by Provider: 12:47 Travel History International Travel<30 days: No Contact w/Intl Traveler<30days: No Traveled to known affect area: No History of Present Illness HPI 51-year-old female came to the emergency room with history of left-sided chest pain radiating to her left arm and her neck for past 3 days. Patient says it comes and goes and has progressively gotten worse. Pain is worse upon movement and when she touches her collarbone on the left side. Vital signs are stable. Patient had a stent put in 6 months ago and wanted to come in since she wanted to be safe than sorry. Patient took 1 baby aspirin this morning. Pain is sharp and severe when it comes. She appeared uncomfortable and anxious. She has been taking her Plavix and aspirin like she supposed to. PFSH Past Medical History Narrative Medical List of her past medical, surgical, social and family history is reviewed from the nursing note. Hx Anticoagulant Therapy: Yes (PLAVIX) Asthma: No Blood Disorders: No Heart Rhythm Problems: No Cancer: No Cardiovascular Problems: Yes High Cholesterol: Yes Chest Pain: Yes COPD: No Cerebrovascular Accident: No Diabetes: Yes Diminished Hearing: No Endocrine: Yes Gastrointestinal Disorders: Yes (gastroparesis) GERD: Yes Genitourinary: No Headaches: Yes Hiatal Hernia: No Hypertension: Yes Immune Disorder: No Kidney Stones: Yes Musculoskeletal: No Neurologic: No Psychiatric: No Reproductive: No Respiratory: No Immunizations Current: No Migraines: No Seizures: No Sleep Apnea: No Thyroid Disease: Yes (HYPO) Ulcer: No Menopausal: Yes : 7 Para: 2 Miscarriage: 5 Tubal Ligation: Yes Past Surgical History Abdominal Surgery: Yes (HERNIA REPAIR, INSULING PUMP PLACEMENT) Body Medical Devices: INSULIN PUMP Section: Yes (x 2) Cholecystectomy: Yes Insulin Pump: Yes (NOVOLOG basal rate varies) Other Surgery: Yes (abcess to pelvic wall ) Social History Alcohol Use: No Tobacco Use: Yes (1 pk q 3 days) Substance Use: No Allergies-Medications (Allergen,Severity, Reaction): Coded Allergies: ciprofloxacin (Unverified Allergy, Severe, ELEVATED BLOOD SUGAR, 07/18/17) gabapentin (Unverified Allergy, Intermediate, HIGH BLOOD SUGARS, 07/18/17) metoclopramide (Unverified Allergy, Mild, FLIPS OUT, 07/18/17) Comments List of her allergies reviewed from the nursing note. Reported Meds & Prescriptions Reported Meds & Active Scripts Active Isosorbide Mononitrate ER (Isosorbide Mononitrate) 30 Mg Luz 30 Mg PO DAILY@07 Metoprolol Tartrate 25 Mg Tab 12.5 Mg PO Q12HR Plavix (Clopidogrel Bisulfate) 75 Mg Tab 75 Mg PO DAILY Aspirin Low Strength (Aspirin) 81 Mg Chew 81 Mg PO DAILY Lisinopril 10 Mg Tab 5 Mg PO DAILY Reported Vitamin D (Cholecalciferol) 2,000 Unit Tab 1 Tab PO DAILY Zocor (Simvastatin) 40 Mg Tab 40 Mg PO DAILY Synthroid (Levothyroxine Sodium) 300 Mcg Tab 300 Mcg PO 6 DAYS A WEEK Narrative Medication List of her home medications reviewed from the nursing note. Review of Systems Except as stated in HPI: all other systems reviewed are Neg Cardiovascular: Positive: Chest Pain or Discomfort Physical Exam Narrative GENERAL: Awake, alert, obese, anxious, moderate distress SKIN: Focused skin assessment warm/dry. HEAD: Atraumatic. Normocephalic. EYES: Pupils equal and round. No scleral icterus. No injection or drainage. ENT: No nasal bleeding or discharge. Mucous membranes pink and moist. NECK: Trachea midline. No JVD. CARDIOVASCULAR: Regular rate and rhythm. No murmur appreciated. RESPIRATORY: No accessory muscle use. Clear to auscultation. Breath sounds equal bilaterally. GASTROINTESTINAL: Abdomen soft, non-tender, nondistended. Hepatic and splenic margins not palpable. MUSCULOSKELETAL: No obvious deformities. No clubbing. No cyanosis. No edema. Tender upon palpation of the mid clavicle NEUROLOGICAL: Awake and alert. No obvious cranial nerve deficits. Motor grossly within normal limits. Normal speech. PSYCHIATRIC: Appropriate mood and affect; insight and judgment normal. Data Data Last Documented VS Vital Signs Date Time Temp Pulse Resp B/P (MAP) Pulse Ox O2 Delivery O2 Flow Rate FiO2 07/18/17 13:30 91 18 156/68 (97) 95 Nasal Cannula 2.00 07/18/17 12:36 98.6 Orders Orders Electrocardiogram (07/18/17 13:00) Basic Metabolic Panel (Bmp) (07/18/17 13:00) Complete Blood Count With Diff (07/18/17 13:00) Magnesium (Mg) (07/18/17 13:00) Prothrombin Time / Inr (Pt) (07/18/17 13:00) Troponin I (07/18/17 13:00) Ecg Monitoring (07/18/17 13:00) Bilateral Bp Monitoring (07/18/17 13:00) Iv Access Insert/Monitor (07/18/17 13:00) Oximetry (07/18/17 13:00) Oxygen Administration (07/18/17 13:00) Aspirin Chew (Aspirin Chew) (07/18/17 13:00) Sodium Chloride 0.9% Flush (Ns Flush) (07/18/17 13:00) Chest, Pa & Lat (07/18/17 13:00) Ketorolac Inj (Toradol Inj) (07/18/17 13:00) Admit Order (Ed Use Only) (07/18/17 15:39) Labs Laboratory Tests Test 07/18/17 12:55 White Blood Count 6.6 TH/MM3 Red Blood Count 4.90 MIL/MM3 Hemoglobin 14.5 GM/DL Hematocrit 43.2 % Mean Corpuscular Volume 88.2 FL Mean Corpuscular Hemoglobin 29.6 PG Mean Corpuscular Hemoglobin Concent 33.5 % Red Cell Distribution Width 13.0 % Platelet Count 177 TH/MM3 Mean Platelet Volume 10.1 FL Neutrophils (%) (Auto) 60.0 % Lymphocytes (%) (Auto) 27.6 % Monocytes (%) (Auto) 9.6 % Eosinophils (%) (Auto) 2.3 % Basophils (%) (Auto) 0.5 % Neutrophils # (Auto) 3.9 TH/MM3 Lymphocytes # (Auto) 1.8 TH/MM3 Monocytes # (Auto) 0.6 TH/MM3 Eosinophils # (Auto) 0.2 TH/MM3 Basophils # (Auto) 0.0 TH/MM3 CBC Comment DIFF FINAL Differential Comment Prothrombin Time 10.5 SEC Prothromb Time International Ratio 1.0 RATIO Blood Urea Nitrogen 13 MG/DL Creatinine 0.75 MG/DL Random Glucose 157 MG/DL Calcium Level 9.2 MG/DL Magnesium Level 1.9 MG/DL Sodium Level 139 MEQ/L Potassium Level 4.0 MEQ/L Chloride Level 108 MEQ/L Carbon Dioxide Level 26.4 MEQ/L Anion Gap 5 MEQ/L Estimat Glomerular Filtration Rate 81 ML/MIN Troponin I LESS THAN 0.02 NG/ML MDM Medical Decision Making Medical Screen Exam Complete: Yes Emergency Medical Condition: Yes Medical Record Reviewed: Yes Interpretation(s) Twelve-lead EKG was reviewed by me. Normal sinus rhythm, normal axis, nonspecific ST-T wave changes. Heart rate of 86 bpm. Differential Diagnosis ACS, non-STEMI, musculoskeletal pain Narrative Course 2 PM blood test results of back and within acceptable limits. Chest x-rays negative. Patient was given 2 baby aspirin and IV Toradol for the pain. I will speak with her estimator lumber Dr. Carter to decide further course. 3:40 PM it has been close to [address] Carter has not called back yet. At this point given her past cardiac history I have decided to admit her to the chest pain center. Procedures EKG Prior to Arrival: No Diagnosis Primary Impression: Chest pain Qualified Codes: R07.9 - Chest pain, unspecified Admitting Information Admitting Physician Requests: Observation Makenzie Dickerson MD Jul 18, 2017 12:47
[2017-07-18 12:53] VITALS: BP 156/68; PULSE 88; PULSE 89; RESP 16; O2SAT 97
[2017-07-18] MEDS ORDERED: KETOROLAC TROMETHAMINE 30 MG/ML (IVP) VIAL IV PUSH ONE (13:00)
[2017-07-18] MEDS ORDERED: SODIUM CHLORIDE 0.9% FLUSH 10 ML FLUSH IVF PRN (13:00)
[2017-07-18] MEDS ORDERED: ASPIRIN 81 MG CHEW TAB PO ONE (13:00)
[2017-07-18 13:22] LABS: AUTOMATED NEUTROPHIL # 3.9 TH/MM3 (1.8-7.7); BASOPHIL % 0.5 % (0.0-2.0); EOSINOPHIL # 0.2 TH/MM3 (0-0.4); EOSINOPHIL % 2.3 % (0.0-4.0); HEMATOCRIT 43.2 % (35.0-46.0); HEMOGLOBIN 14.5 GM/DL (11.6-15.3); LYMPH % 27.6 % (9.0-44.0); LYMPHOCYTE # 1.8 TH/MM3 (1.0-4.8); MEAN CELL VOLUME 88.2 FL (80.0-100.0); MEAN CORPUSCULAR HEMOGLOBIN 29.6 PG (27.0-34.0); MEAN CORPUSCULAR HGB CONC 33.5 % (32.0-36.0); MEAN PLATELET VOLUME 10.1 FL (7.0-11.0); MONO % 9.6 % (0.0-8.0); MONOCYTE # 0.6 TH/MM3 (0-0.9); PLATELET COUNT 177 TH/MM3 (150-450); WHITE BLOOD COUNT 6.6 TH/MM3 (4.0-11.0)
[2017-07-18 13:28] LABS: PROTHROMBIN TIME - PATIENT 10.5 SEC (9.8-11.6)
[2017-07-18 13:30] VITALS: BP 156/68; PULSE 91; RESP 18; O2SAT 95
[2017-07-18 13:41] LABS: BICARBONATE 26.4 MEQ/L (21.0-32.0); BLOOD UREA NITROGEN 13 MG/DL (7-18); CALCIUM 9.2 MG/DL (8.5-10.1); CHLORIDE 108 MEQ/L (98-107); CREATININE 0.75 MG/DL (0.50-1.00); GLOMERULAR FILTRATION RATE 81 ML/MIN (>89); GLUCOSE,RANDOM 157 MG/DL (74-106); MAGNESIUM 1.9 MG/DL (1.5-2.5); SODIUM (NA) 139 MEQ/L (136-145)
[2017-07-18 13:45] LABS: TROPONIN I LESS THAN 0.02 NG/ML (0.02-0.05)
--- NOTE | 2017-07-18 13:49 | RADRPT ---
EXAM DATE/TIME: 07/18/2017 13:33 [place] COMPARISON: CHEST PA & LAT, May 13, 2015, 12:43. INDICATIONS : Pain left upper chest and clavicle for 2 months, pain became more intense this weekend, denies trauma MEDICAL HISTORY : Cardiovascular disease. SURGICAL HISTORY : Coronary artery stent. ENCOUNTER: Initial ACUITY: 2 months PAIN SCORE: 10/10 LOCATION: Left chest FINDINGS: PA and lateral views of the chest demonstrate the lungs to be symmetrically aerated without evidence of mass, infiltrate or effusion. The cardiomediastinal contours are unremarkable. Osseous structure s are intact. CONCLUSION: No acute disease. Aaron Charles MD FACR on July 18, 2017 at 13:48 Board Certified Radiologist. This report was verified electronically.
--- NOTE | 2017-07-18 16:13 | HHI.HP ---
HPI Primary Care Physician Marko Apple DO Chief Complaint Chest pain History of Present Illness 51-year-old female with history of type 1 diabetes and coronary artery disease presents to emergency room for further evaluation of chest pain. Onset "a while ago, " the coming worse over the weekend. Location left upper, anterior chest pain. Characterized as sharp. No radiation. No associated symptoms no nausea, vomiting, dyspnea, or diaphoresis. No known precipitating or relieving factors. Denies similar pain in the past. Cardiac stent placed December [address] Cory cartre, denies pain being similar to when stent placed. Touching area or raising left arm reproduces pain. No known injury however suspects possible injury while walking her 120 pound Setswana mastiff and reports dog often jumps on her chest. Review of Systems General: No fatigue,weakness, fever, chills, or recent illness change in appetite. Has been her general state help. HEENT: No MIRANDA, no nasal congestion or drainage CV: As stated above. RESP: No SOB, cough, wheeze, or recent URI. GI: No nausea, vomiting, or bowel changes. : No dysuria, urgency, frequency EXT: No lower leg edema, no paraesthesias MS: No discomfort, known injury, or recent trauma. NEURO: No difficulty with balance, LOC, motor/sensory deficits PSYCH: No anxiety, depression SKIN: No rashes, no concerning lesions Past Family Social History Allergies: Coded Allergies: ciprofloxacin (Unverified Allergy, Severe, ELEVATED BLOOD SUGAR, 07/18/17) gabapentin (Unverified Allergy, Intermediate, HIGH BLOOD SUGARS, 07/18/17) metoclopramide (Unverified Allergy, Mild, FLIPS OUT, 07/18/17) Past Medical History Diabetes (reports type 1), coronary artery disease, x1 cardiac stent hyperlipidemia, GERD, hypothyroidism Reported Medications Reported Meds & Active Scripts Active Isosorbide Mononitrate ER (Isosorbide Mononitrate) 30 Mg Luz 30 Mg PO DAILY@07 Metoprolol Tartrate 25 Mg Tab 12.5 Mg PO Q12HR Plavix (Clopidogrel Bisulfate) 75 Mg Tab 75 Mg PO DAILY Aspirin Low Strength (Aspirin) 81 Mg Chew 81 Mg PO DAILY Lisinopril 10 Mg Tab 5 Mg PO DAILY Reported Vitamin D (Cholecalciferol) 2,000 Unit Tab 1 Tab PO DAILY Zocor (Simvastatin) 40 Mg Tab 40 Mg PO DAILY Synthroid (Levothyroxine Sodium) 300 Mcg Tab 300 Mcg PO 6 DAYS A WEEK Active Ordered Medications Current Medications Medications (Trade) Dose Ordered Sig/Latrice Route Start Time Stop Time Status Last Admin (NS Flush) 2 ml UNSCH PRN IVF 07/18/17 13:00 07/18/17 13:18 Social History Known CAD, diabetes, and hyperlipidemia. Past cardiac testing 01/05/2017 Cardiac catheterization (Dr. Carter)-Conclusion 1. Severe mid left anterior descending coronary artery disease. 2. Normal left-sided filling pressures. 3 successful percutaneous intervention with a drug-eluting stent to the mid left anterior descending coronary artery. Physical Exam Vital Signs Vital Signs Date Time Temp Pulse Resp B/P (MAP) Pulse Ox O2 Delivery O2 Flow Rate FiO2 07/18/17 13:00 99 Nasal Cannula 2.00 07/18/17 12:56 98 Nasal Cannula 2.00 07/18/17 12:53 89 16 156/68 (97) 97 07/18/17 12:53 88 156/68 (97) 07/18/17 12:36 98.6 91 16 137/69 (91) 97 Physical Exam GENERAL: Alert WN, WD, NAD, pleasant, obese, female HEAD: NC, AT CV: RRR, without murmur, rub, gallop, no JVD, S1-S2 no S3-S4. Chest wall pain reproduced with palpation with point tenderness. RESP: Clear lungs throughout bilateral, no crackles, wheeze, rhonchi, symmetrical chest rise, nonlabored, able to speak in full sentences EXT: Pulses +24, no dependent edema MS: Normal tone 4 extremities, no obvious deformities, full range of motion NEURO: CN II through CN XII grossly intact, motor strength 5/5 PSYCH: A+O 3, pleasant affect, appropriate speech, mood, insight and judgment SKIN: Normal turgor, normal texture, no lesions, no rashes, tattoos Laboratory Laboratory Tests Test 07/18/17 12:55 White Blood Count 6.6 Red Blood Count 4.90 Hemoglobin 14.5 Hematocrit 43.2 Mean Corpuscular Volume 88.2 Mean Corpuscular Hemoglobin 29.6 Mean Corpuscular Hemoglobin Concent 33.5 Red Cell Distribution Width 13.0 Platelet Count 177 Mean Platelet Volume 10.1 Neutrophils (%) (Auto) 60.0 Lymphocytes (%) (Auto) 27.6 Monocytes (%) (Auto) 9.6 Eosinophils (%) (Auto) 2.3 Basophils (%) (Auto) 0.5 Neutrophils # (Auto) 3.9 Lymphocytes # (Auto) 1.8 Monocytes # (Auto) 0.6 Eosinophils # (Auto) 0.2 Basophils # (Auto) 0.0 CBC Comment DIFF FINAL Differential Comment Prothrombin Time 10.5 Prothromb Time International Ratio 1.0 Blood Urea Nitrogen 13 Creatinine 0.75 Random Glucose 157 Calcium Level 9.2 Magnesium Level 1.9 Sodium Level 139 Potassium Level 4.0 Chloride Level 108 Carbon Dioxide Level 26.4 Anion Gap 5 Estimat Glomerular Filtration Rate 81 Troponin I LESS THAN 0.02 Result Diagram: 07/18/17 1255 07/18/17 1255 Course EKG NSR, normal axis, no st t segment changes Caprini VTE Risk Assessment Caprini VTE Risk Assessment: No/Low Risk (score <= 1) Caprini Risk Assessment Model Point Value = 1 Point Value = 2 Point Value = 3 Point Value = 5 Age 41-60 Minor surgery BMI > 25 kg/m2 Swollen legs Varicose veins or History of unexplained or recurrent spontaneous Oral contraceptives or hormone replacement Sepsis (< 1 month) Serious lung disease, including pneumonia (< 1 month) Abnormal pulmonary function Acute myocardial infarction Congestive heart failure (< 1 month) History of inflammatory bowel disease Medical patient at bed rest Age 61-74 Arthroscopic surgery Major open surgery (> 45 min) Laparoscopic surgery (> 45 min) Malignancy Confined to bed (> 72 hours) Immobilizing plaster cast Central venous access Age >= 75 History of VTE Family history of VTE Factor V Leiden Prothrombin [id number] Lupus anticoagulant Anticardiolipin antibodies Elevated serum homocysteine Heparin-induced thrombocytopenia Other congenital or acquired thrombophilia Stroke (< 1 month) Elective arthroplasty Hip, pelvis, or leg fracture Acute spinal cord injury (< 1 month) Prophylaxis Regimen Total Risk Factor Score Risk Level Prophylaxis Regimen 0-1 Low Early ambulation 2 Moderate Order ONE of the following: *Sequential Compression Device (SCD) *Heparin 5000 units SQ BID 3-4 Higher Order ONE of the following medications: *Heparin 5000 units SQ TID *Enoxaparin/Lovenox 40 mg SQ daily (WT < 150 kg, CrCl > 30 mL/min) *Enoxaparin/Lovenox 30 mg SQ daily (WT < 150 kg, CrCl > 10-29 mL/min) *Enoxaparin/Lovenox 30 mg SQ BID (WT < 150 kg, CrCl > 30 mL/min) AND/OR *Sequential Compression Device (SCD) 5 or more Highest Order ONE of the following medications: *Heparin 5000 units SQ TID (Preferred with Epidurals) *Enoxaparin/Lovenox 40 mg SQ daily (WT < 150 kg, CrCl > 30 mL/min) *Enoxaparin/Lovenox 30 mg SQ daily (WT < 150 kg, CrCl > 10-29 mL/min) *Enoxaparin/Lovenox 30 mg SQ BID (WT < 150 kg, CrCl > 30 mL/min) AND *Sequential Compression Device (SCD) Assessment and Plan Assessment and Plan #1 Musculoskeletal chest pain-admitted to chest pain center. Seen and evaluated by Dr. Nils Belcher. Discomfort clearly musculoskeletal, easily reproduced with palpation and movement. No further cardiac testing required. Routine appointment with Dr. Carter scheduled , encouraged keeping appointment. Plans to discharge home this evening. Encouraged use of heating pad to affected area and use of over the counter Tylenol or Aleve. Verbalized understanding and agreeable to plan of care. Renata Shaffer Jul 18, 2017 16:13
--- NOTE | 2017-07-18 16:14 | HHI.DCPOC ---
Discharge Care Plan Diagnosis: (1) Musculoskeletal chest pain (2) Hx of coronary artery disease Goals to Promote Your Health * To prevent worsening of your condition and complications * To maintain your health at the optimal level Directions to Meet Your Goals Take your medications as prescribed Follow your dietary instruction Follow activity as directed Keep your appointments as scheduled Take your immunizations and boosters as scheduled If your symptoms worsen call your PCP, if no PCP go to Urgent Care Center or Emergency Room Smoking is Dangerous to Your Health. Avoid second hand smoke Call the 24-hour hour crisis hotline for domestic abuse at Renata Shaffer Jul 18, 2017 16:14
[2017-07-18 17:35] VITALS: BP 143/65
--- NOTE | 2017-07-19 22:51 | EKG ---
Date Performed: 07/18/2017 Time Performed: 12:49:50 PTAGE: 51 years EKG: Sinus rhythm NORMAL ECG PREVIOUS TRACING : 01/16/2017 00.55 Since the prior tracing, there has been no significant reveles DOCTOR: Wero Harrington Interpretating Date/Time 07/19/2017 22:48:39
== END 2017-07-18 17:47 | disposition home or self-care (01) ==
LOC: NEPE 11:53 → NEDA 15:40
PROVIDERS: ADMIT Internal Medicine Cardiovascular Disease; ATTEND Internal Medicine Cardiovascular Disease
DX: R07.9 Chest pain, unspecified (principal); I10 Essential (primary) hypertension; E78.5 Hyperlipidemia, unspecified; I25.10 Atherosclerotic heart disease of native coronary artery without angina pectoris; K21.9 Gastro-esophageal reflux disease without esophagitis; E10.43 Type 1 diabetes mellitus with diabetic autonomic (poly)neuropathy; K31.84 Gastroparesis; E03.9 Hypothyroidism, unspecified; E78.00 Pure hypercholesterolemia, unspecified; Z72.0 Tobacco use; Z95.5 Presence of coronary angioplasty implant and graft; Z79.4 Long term (current) use of insulin; Z87.442 Personal history of urinary calculi
CPT/HCPCS: 71046; 80048; 83735; 84484; 85025; 85610; 93005; 96374; 96376; 99285; G0378; J1885

== ENCOUNTER 2018-04-14 17:24 | Observation (INO) ==
[2018-04-14] MEDS ORDERED: Metoprolol Tartrate 25 MG Tablet PO ONE (19:34)
[2018-04-14] MEDS ORDERED: Morphine Inj 4 MG/ML Vial IV.PUSH ONE (19:34)
[2018-04-14] MEDS ORDERED: Lisinopril 5 MG Tablet PO ONE (19:34)
--- NOTE | 2018-04-14 20:00 | XR ---
EXAM DATE: 04/14/2018 7:52 PM EST AGE/SEX: 52 years / Female INDICATIONS: Shortness of breath and chest tightness. CLINICAL DATA: This is the patient's initial encounter. Patient reports that signs and symptoms have been present for 2 weeks and indicates a pain score of 0/10. MEDICAL/SURGICAL HISTORY: Angina. . Cardiac stent. COMPARISON: [facility] [place], CHEST 2V PA&LAT, 03/04/2018. . FINDINGS: A single AP view of the chest demonstrates the lungs to be symmetrically aerated without evidence of mass, infiltrate or effusion. The cardiomediastinal contours are unremarkable. Osseous structures a re intact. CONCLUSION: No evidence of acute cardiopulmonary disease. Electronically signed by: Wisam Loving MD 04/14/2018 7:58 PM EST
--- NOTE | 2018-04-14 20:19 | ED ---
HPI General Chief Complaint: Chest Pain Stated Complaint: chest pain Time Seen by Provider: 04/14/18 19:17 Source: patient Mode of arrival: ambulatory Limitations: no limitations History of Present Illness HPI narrative: 52-year-old female came to the emergency room with history of left-sided chest pain radiating to her back. The pain has been continuous and progressively worsening over the past 2 weeks. Patient has history of coronary artery disease including a stent placed over a year ago. Her senior industrial engineer is Dr. Carter. However patient has not called her senior industrial engineer and mentioned her condition. Patient is a diabetic and a smoker. Her blood pressure was elevated upon arrival. Patient appears anxious. Says that she has not in general been feeling well for past 2 weeks. No aggravating or relieving symptoms identified for the chest pain. Patient says that she has associated some shortness of breath and nausea. No history of vomiting or syncopal episodes. Patient says she did not take any of her medications today because of the way she was feeling. Related Data Home Medications Medication Instructions Recorded Confirmed aspirin [Aspir-81] 81 mg PO DAILY 03/04/18 04/14/18 atorvastatin 40 mg PO DAILY 03/04/18 04/14/18 insulin lispro [Humalog U-100 See Label Instructions .ROUTE 03/04/18 Insulin] .COMPLEX insulin pump controller 03/04/18 04/14/18 lisinopril 5 mg PO DAILY 03/04/18 04/14/18 clopidogrel [Plavix] 75 mg PO DAILY 04/14/18 04/15/18 metoprolol tartrate 12.5 mg PO BID 04/15/18 04/15/18 Allergies Allergy/AdvReac Type Severity Reaction Status Date / Time ciprofloxacin Allergy Severe ELEVATED Verified 04/14/18 17:31 BLOOD SUGAR gabapentin Allergy Intermediate HIGH BLOOD Verified 04/14/18 17:31 SUGARS metoclopramide Allergy Mild FLIPS OUT Verified 04/14/18 17:31 Review of Systems ROS: all other systems reviewed are negative [facility] Medical History Medical History Diabetes (Acute) Sarcoidosis (Acute) CAD (coronary artery disease) (Acute) HTN (hypertension) (Acute) High cholesterol (Acute) Surgical History Surgical History Stented coronary artery (Acute) Social History Social History Substance History: No History of Abuse Second Hand Smoke Exposure: No Smoking Status: Never smoker Tobacco Type: Cigarettes How Often Do You Have a Drink Containing Alcohol: Never Recent Travel in [facility] within the Last 8 Weeks: No Recent Out of Country Travel within the Last 8 Weeks: No Immunization History Tetanus Immunization: Unsure Exam Narrative Exam Narrative: GENERAL: Awake, alert, morbidly obese, anxious, moderate distress SKIN: Focused skin assessment warm/dry. HEAD: Atraumatic. Normocephalic. EYES: Pupils equal and round. No scleral icterus. No injection or drainage. ENT: No nasal bleeding or discharge. Mucous membranes pink and moist. NECK: Trachea midline. No JVD. CARDIOVASCULAR: Regular rate and rhythm. No murmur appreciated. RESPIRATORY: No accessory muscle use. Clear to auscultation. Breath sounds equal bilaterally. GASTROINTESTINAL: Abdomen soft, non-tender, nondistended. Hepatic and splenic margins not palpable. MUSCULOSKELETAL: No obvious deformities. No clubbing. No cyanosis. No edema. NEUROLOGICAL: Awake and alert. No obvious cranial nerve deficits. Motor grossly within normal limits. Normal speech. PSYCHIATRIC: Appropriate mood and affect; insight and judgment normal. Course Initial Documented Vital Signs Temperature 97.8 F 04/14/18 17:27 Pulse Rate 99 H 04/14/18 17:27 Respiratory Rate 18 04/14/18 17:27 Blood Pressure 181/76 H 04/14/18 17:27 Pulse Oximetry 97 04/14/18 17:27 Last Documented Vital Signs Temperature 97.9 F 04/15/18 12:00 Pulse Rate 102 H 04/15/18 12:00 Respiratory Rate 16 04/15/18 12:00 Blood Pressure 136/63 04/15/18 12:00 Pulse Oximetry 96 04/15/18 12:00 Medical Decision Making MDM Narrative Medical decision making narrative: 8:18 PM awaiting for blood test results. I have ordered 2 baby aspirins, Lopressor and lisinopril for her blood pressure. If the blood test results are within normal limit patient will be admitted to the chest pain center to be ruled out. 9:19 PM blood test results are within acceptable limits except for her blood glucose which is mildly low. Patient was given laura crackers and neris cyrus. The nurse will repeat the blood glucose. Patient will be admitted to the chest pain center. Medical Screen Exam Complete: Yes Emergency Medical Condition: Yes Lab Data Result diagrams: 04/14/18 19:45 04/14/18 19:45 Lab Results 04/14/18 04/14/18 04/14/18 Range/Units 19:45 19:45 19:54 WBC 7.8 (4.0-11.0) th/mm3 RBC 4.89 (4.00-5.30) mil/mm3 Hgb 14.7 (11.6-15.3) gm/dL Hct 43.4 (35.0-46.0) % MCV 88.7 (80.0-100.0) fL MCH 30.1 (27.0-34.0) pg MCHC 33.9 (32.0-36.0) % RDW 13.3 (11.6-17.2) % Plt Count 182 (150-450) th/mm3 MPV 9.6 (7.0-11.0) fL Neut % (Auto) 54.6 (16.0-70.0) % Lymph % (Auto) 35.3 (9.0-44.0) % Carlton % (Auto) 7.8 (0.0-8.0) % Eos % (Auto) 1.9 (0.0-4.0) % Baso % (Auto) 0.4 (0.0-2.0) % Neut # (Auto) 4.3 (1.8-7.7) th/mm3 Lymph # (Auto) 2.7 (1.0-4.8) th/mm3 Carlton # (Auto) 0.6 (0.0-0.9) th/mm3 Eos # (Auto) 0.1 (0.0-0.4) th/mm3 Baso # (Auto) 0.0 (0.0-0.2) th/mm3 WBC Differential . Differential Comment Auto diff final Sodium 142 (136-145) meq/L Potassium 3.7 (3.5-5.1) meq/L Chloride 108 H (98-107) meq/L Carbon Dioxide 26.8 (21.0-32.0) meq/L Anion Gap 7 (5-15) meq/L BUN 10 (7-18) mg/dL Creatinine 0.78 (0.50-1.00) mg/dL Estimated GFR 78 L (>89) mL/min POC Glucose 76 (68-110) mg/dl Random Glucose 72 L (74-106) mg/dL Calcium 8.9 (8.5-10.1) mg/dL Total Bilirubin 0.4 (0.2-1.0) mg/dL AST 17 (15-37) U/L ALT 21 (10-53) U/L Alkaline Phosphatase 107 (45-117) U/L Total Creatine Kinase (26-192) U/L Troponin I Less than 0.02 L (0.02-0.05) ng/mL Total Protein 7.1 (6.4-8.2) g/dL Albumin 3.6 (3.4-5.0) g/dL 04/14/18 04/14/18 04/15/18 Range/Units 21:29 23:25 00:57 WBC (4.0-11.0) th/mm3 RBC (4.00-5.30) mil/mm3 Hgb (11.6-15.3) gm/dL Hct (35.0-46.0) % MCV (80.0-100.0) fL MCH (27.0-34.0) pg MCHC (32.0-36.0) % RDW (11.6-17.2) % Plt Count (150-450) th/mm3 MPV (7.0-11.0) fL Neut % (Auto) (16.0-70.0) % Lymph % (Auto) (9.0-44.0) % Carlton % (Auto) (0.0-8.0) % Eos % (Auto) (0.0-4.0) % Baso % (Auto) (0.0-2.0) % Neut # (Auto) (1.8-7.7) th/mm3 Lymph # (Auto) (1.0-4.8) th/mm3 Carlton # (Auto) (0.0-0.9) th/mm3 Eos # (Auto) (0.0-0.4) th/mm3 Baso # (Auto) (0.0-0.2) th/mm3 WBC Differential Differential Comment Sodium (136-145) meq/L Potassium (3.5-5.1) meq/L Chloride (98-107) meq/L Carbon Dioxide (21.0-32.0) meq/L Anion Gap (5-15) meq/L BUN (7-18) mg/dL Creatinine (0.50-1.00) mg/dL Estimated GFR (>89) mL/min POC Glucose 114 H (68-110) mg/dl Random Glucose (74-106) mg/dL Calcium (8.5-10.1) mg/dL Total Bilirubin (0.2-1.0) mg/dL AST (15-37) U/L ALT (10-53) U/L Alkaline Phosphatase (45-117) U/L Total Creatine Kinase 99 58 (26-192) U/L Troponin I Less than 0.02 L Less than 0.02 L (0.02-0.05) ng/mL Total Protein (6.4-8.2) g/dL Albumin (3.4-5.0) g/dL Imaging Data Radiologist's impression: Chest X-Ray 04/14/18 19:34 CONCLUSION: No evidence of acute cardiopulmonary disease. Myocardial Perfusion Scan Nuc Med 04/15/18 08:45 CONCLUSION: Negative myocardial perfusion stress test. ECG Data Attestation: I personally reviewed and interpreted this ECG as follows: Interpretation: Twelve-lead EKG was reviewed by me. Normal sinus rhythm, normal axis, nonspecific ST-T wave changes, tachycardia. Heart rate of 101 bpm Discharge Plan Discharge Disposition Patient Disposition: 30 Still Patient Discharge Condition Condition: Stable Discharge Order Discharge Orders: Discharge Order (Routine); Ordered 04/15/18 Ordered By: Chemo Swanson Physicians Team ED Provider: Makenzie Dickerson Primary Care Provider: Marko Apple Attending Provider: Meredith Bar ED Status: Left Department Discharge Information Discharge Date/Time: 04/14/18 23:17
[2018-04-14 20:36] LABS: Baso % (Auto) 0.4 % (0.0-2.0); Eos # (Auto) 0.1 th/mm3 (0.0-0.4); Eos % (Auto) 1.9 % (0.0-4.0); Hematocrit 43.4 % (35.0-46.0); Hemoglobin 14.7 gm/dL (11.6-15.3); Lymph # (Auto) 2.7 th/mm3 (1.0-4.8); Lymph % (Auto) 35.3 % (9.0-44.0); Mean Corpuscular HGB Conc 33.9 % (32.0-36.0); Mean Corpuscular Hemoglobin 30.1 pg (27.0-34.0); Mean Corpuscular Volume 88.7 fL (80.0-100.0); Mean Platelet Volume 9.6 fL (7.0-11.0); Mono # (Auto) 0.6 th/mm3 (0.0-0.9); Mono % (Auto) 7.8 % (0.0-8.0); Neut # (Auto) 4.3 th/mm3 (1.8-7.7); Neut % (Auto) 54.6 % (16.0-70.0); Platelet Count 182 th/mm3 (150-450); Red Blood Count 4.89 mil/mm3 (4.00-5.30); Red Cell Distribution Width 13.3 % (11.6-17.2); White Blood Count 7.8 th/mm3 (4.0-11.0)
[2018-04-14 21:03] LABS: Alkaline Phosphatase 107 U/L (45-117); Total Protein 7.1 g/dL (6.4-8.2)
[2018-04-14 21:06] LABS: Alanine Aminotransferase 21 U/L (10-53); Albumin 3.6 g/dL (3.4-5.0); Anion Gap 7 meq/L (5-15); Aspartate Aminotransferase 17 U/L (15-37); Blood Urea Nitrogen 10 mg/dL (7-18); Calcium 8.9 mg/dL (8.5-10.1); Carbon Dioxide 26.8 meq/L (21.0-32.0); Chloride 108 meq/L (98-107); Glomerular Filtration Rate 78 mL/min (>89); Glucose,Random 72 mg/dL (74-106); Potassium 3.7 meq/L (3.5-5.1); Sodium 142 meq/L (136-145)
[2018-04-14 23:58] LABS: Creatine Kinase 99 U/L (26-192)
[2018-04-15 02:04] LABS: Creatine Kinase 58 U/L (26-192)
--- NOTE | 2018-04-15 09:03 | P.HPCA ---
History of Present Illness Service: Chest pain center Primary Care Physician: Marko Apple DO Cardiology Dr. Carter Endocrinology Dr. Monahan Chief Complaint: Chest pain History of Present Illness: 52-year-old lady presents to the emergency room with complaints of 2 weeks chest pain. She has a known history of coronary artery disease having had a nuclear stress test in December 2016 followed by placement of the stent by Dr. Carter. She had a repeat nuclear stress test in August of this year which was negative. She also has history of hypertension poorly controlled, continues to smoke a limited amount, and has a long-standing history of sarcoidosis. However over the last 2 weeks she has been having vague atypical chest pain. This may have begun when her last jumped on her and caused discomfort in her upper back and chest. However she also complains of some chronic pain in her left upper chest and left shoulder area. Her current complaint is discomfort in her left chest area beginning initially in the sternum and radiating to the left breast. There are 2 components to this pain one lasts only seconds and is fairly sharp and severe the other is a diffuse dull squeezing that in her own words feel like it is muscle or strain. At times this discomfort however radiates into the left facial area. Her only associated symptoms are belching and some difficulty with swallowing she also notes that this can be precipitated by pressure or pushing on her left chest. There are no relieving factors. She is obviously anxious this this could be again related to her heart. Also important to note that on presentation her blood pressure was significantly elevated. - Diagnosis (1) Chest pain due to CAD (2) Chest pain, musculoskeletal (3) Hypertension (4) Sarcoidosis (5) Tobacco use disorder, mild, in early remission, on maintenance therapy, abuse Review of Systems All other systems reviewed negative except as stated in HPI PMFSH - History History Provided By: Patient - Medical History Medical History: Medical History (Last Reviewed 04/14/18 @ 20:17 by Makenzie Dickerson MD) Diabetes Sarcoidosis CAD (coronary artery disease) HTN (hypertension) High cholesterol - Surgical History Surgical History: Surgical History (Last Reviewed 04/14/18 @ 20:17 by Makenzie Dickerson MD) Stented coronary artery - Tobacco History Second Hand Smoke Exposure: No Tobacco Use In Past 30 Days: Yes Smoking Status: Never smoker Tobacco Type: Cigarettes - Alcohol History How Often Do You Have a Drink Containing Alcohol: Never - Substance Use History Substance History: No History of Abuse - Travel History Recent Travel in the [place] Within the Last 8 Weeks: No Recent Travel Out of the Country Within the Last 8 Weeks: No - Immunization History Tetanus Immunization: Unsure Medications and Allergies Active Medications: Active Medications Sodium Chloride (Ns Flush) 2 ml IV.FLUSH UNSCH PRN PRN Reason: FLUSH AFTER USING IV ACCESS Sodium Chloride (Ns Flush) 2 ml IV.FLUSH BID SENTHIL Sodium Chloride (Ns Flush) 2 ml IV.FLUSH PRN PRN PRN Reason: FLUSH AFTER USING IV ACCESS Allergies Allergy/AdvReac Type Severity Reaction Status Date / Time ciprofloxacin Allergy Severe ELEVATED Verified 04/14/18 17:31 BLOOD SUGAR gabapentin Allergy Intermediate HIGH BLOOD Verified 04/14/18 17:31 SUGARS metoclopramide Allergy Mild FLIPS OUT Verified 04/14/18 17:31 Home Medications Medication Instructions Recorded Confirmed Type aspirin [Aspir-81] 81 mg PO DAILY 03/04/18 04/14/18 History atorvastatin 40 mg PO DAILY 03/04/18 04/14/18 History insulin lispro [Humalog U-100 See Label Instructions .ROUTE 03/04/18 History Insulin] .COMPLEX insulin pump controller 03/04/18 04/14/18 History lisinopril 5 mg PO DAILY 03/04/18 04/14/18 History metoprolol tartrate [Lopressor] 12.5 mg PO BID 03/04/18 04/14/18 History clopidogrel [Plavix] 1 mg PO DAILY 04/14/18 04/14/18 History Exam Vital signs: Vital Signs 04/14/18 17:27 04/14/18 19:32 04/14/18 20:05 Temperature 97.8 F Pulse Rate 99 H 96 H 95 H Respiratory Rate 18 Blood Pressure 181/76 H 186/77 H Pulse Oximetry 97 98 99 04/14/18 20:39 04/14/18 20:40 04/15/18 04:19 Temperature Pulse Rate 84 84 Respiratory Rate 19 18 18 Blood Pressure 158/72 H 124/87 Pulse Oximetry 99 95 04/15/18 08:00 Temperature 97.6 F Pulse Rate 99 H Respiratory Rate 16 Blood Pressure 134/69 Pulse Oximetry 97 Intake & Output 11/23/18 11/24/18 11/24/18 18:59 06:59 18:59 Weight 97.522 kg 97.522 kg Other: Date of Last Bowel Movement 04/14/18 Weight On Admission 97.522 kg Narrative: Patient is awake cooperative and appears comfortable at time of exam general significantly obese with some diffuse tattoos Skin warm dry and normal texture and turgor Eyes PERRLA EOMI with mild bilateral cataract conjunctivae slightly injected Mouth mucous membranes are moist tongue well papillated upper and lower plates in place no lesions Neck supple no JVD masses nodes or bruits Chest tender over the left lower sternum and somewhat over the left upper chest exquisitely tender in her left deltoid area but clear to auscultation with no rales wheezes or rhonchi Cardiovascular rhythm is regular there are no gallops rubs or murmurs The abdomen is obese soft nontender no guarding or rebound Extremities reveal necrobiotic changes both pretibial areas secondary to her diabetes but no clubbing cyanosis or edema Neurologic cranial nerves are intact motor is grossly symmetrically equal and intact Psychiatric patient is clearly anxious that she may have recurrence of her cardiac status but no evidence of depression or judgment abnormalities Results 04/14/18 19:45 04/14/18 19:45 Cardiac Enzymes 04/14/18 04/14/18 04/15/18 Range/Units 19:45 23:25 00:57 AST 17 (15-37) U/L Troponin I Less than 0.02 L Less than 0.02 L Less than 0.02 L (0.02-0.05) ng/mL CBC 04/14/18 Range/Units 19:45 WBC 7.8 (4.0-11.0) th/mm3 RBC 4.89 (4.00-5.30) mil/mm3 Hgb 14.7 (11.6-15.3) gm/dL Hct 43.4 (35.0-46.0) % Plt Count 182 (150-450) th/mm3 Neut # (Auto) 4.3 (1.8-7.7) th/mm3 Lymph # (Auto) 2.7 (1.0-4.8) th/mm3 [place] # (Auto) 0.6 (0.0-0.9) th/mm3 Eos # (Auto) 0.1 (0.0-0.4) th/mm3 Baso # (Auto) 0.0 (0.0-0.2) th/mm3 Comprehensive Metabolic Panel 04/14/18 Range/Units 19:45 Sodium 142 (136-145) meq/L Potassium 3.7 (3.5-5.1) meq/L Chloride 108 H (98-107) meq/L Carbon Dioxide 26.8 (21.0-32.0) meq/L BUN 10 (7-18) mg/dL Creatinine 0.78 (0.50-1.00) mg/dL Calcium 8.9 (8.5-10.1) mg/dL AST 17 (15-37) U/L ALT 21 (10-53) U/L Alkaline Phosphatase 107 (45-117) U/L Total Protein 7.1 (6.4-8.2) g/dL Albumin 3.6 (3.4-5.0) g/dL Intake and Output 04/14/18 04/15/18 04/15/18 22:59 06:59 14:59 Other: Date of Last Bowel Movement 04/14/18 Weight 97.522 kg 97.522 kg Weight On Admission 97.522 kg - Imaging and Cardiology Imaging: Impressions Chest X-Ray 04/14/18 19:34 CONCLUSION: No evidence of acute cardiopulmonary disease. Caprini VTE Risk Assessment Caprini VTE Risk Assessment: Moderate/High Risk (score >= 2) Caprini Risk Assessment Model: Point Value = 1 Point Value = 2 Point Value = 3 Point Value = 5 Age 41-60 Minor surgery BMI > 25 kg/m2 Swollen legs Varicose veins or History of unexplained or recurrent spontaneous Oral contraceptives or hormone replacement Sepsis (< 1 month) Serious lung disease, including pneumonia (< 1 month) Abnormal pulmonary function Acute myocardial infarction Congestive heart failure (< 1 month) History of inflammatory bowel disease Medical patient at bed rest Age 61-74 Arthroscopic surgery Major open surgery (> 45 min) Laparoscopic surgery (> 45 min) Malignancy Confined to bed (> 72 hours) Immobilizing plaster cast Central venous access Age >= 75 History of VTE Family history of VTE Factor V Leiden Prothrombin [id number] Lupus anticoagulant Anticardiolipin antibodies Elevated serum homocysteine Heparin-induced thrombocytopenia Other congenital or acquired thrombophilia Stroke (< 1 month) Elective arthroplasty Hip, pelvis, or leg fracture Acute spinal cord injury (< 1 month) Prophylaxis Regimen: Total Risk Factor Score Risk Level Prophylaxis Regimen 0-1 Low Early ambulation 2 Moderate Order ONE of the following: *Sequential Compression Device (SCD) *Heparin 5000 units SQ BID 3-4 Higher Order ONE of the following medications: *Heparin 5000 units SQ TID *Enoxaparin/Lovenox 40 mg SQ daily (WT < 150 kg, CrCl > 30 mL/min) *Enoxaparin/Lovenox 30 mg SQ daily (WT < 150 kg, CrCl > 10-29 mL/min) *Enoxaparin/Lovenox 30 mg SQ BID (WT < 150 kg, CrCl > 30 mL/min) AND/OR *Sequential Compression Device (SCD) 5 or more Highest Order ONE of the following medications: *Heparin 5000 units SQ TID (Preferred with Epidurals) *Enoxaparin/Lovenox 40 mg SQ daily (WT < 150 kg, CrCl > 30 mL/min) *Enoxaparin/Lovenox 30 mg SQ daily (WT < 150 kg, CrCl > 10-29 mL/min) *Enoxaparin/Lovenox 30 mg SQ BID (WT < 150 kg, CrCl > 30 mL/min) AND *Sequential Compression Device (SCD) Assessment and Plan - Assessment (1) Chest pain due to CAD Code(s): R07.9 - Chest pain, unspecified; I25.10 - Atherosclerotic heart disease of [place] coronary artery without angina pectoris Status: Acute Plan: Repeat nuclear stress test will be obtained to evaluate current status of possible coronary disease (2) Chest pain, musculoskeletal Code(s): R07.89 - Other chest pain Status: Acute Plan: Much of her current discomfort is clearly musculoskeletal in nature and post discharge she will be referred back to Dr. Apple for management of this portion of her problem (3) Hypertension Code(s): I10 - Essential (primary) hypertension Status: Acute Plan: She will be stabilized during her admission and referred back to Dr. Apple for ongoing management of her hypertension (4) Sarcoidosis Code(s): D86.9 - Sarcoidosis, unspecified Status: Acute Plan: She will be discharged to follow-up care with Dr. Monahan and Dr. Apple for management of her sarcoid (5) Tobacco use disorder, mild, in early remission, on maintenance therapy, abuse Code(s): Z72.0 - Tobacco use Status: Acute Plan: She is reminded of the importance of total cessation of cigarette smoking in view of her known history of coronary disease H&P: Quality - VTE Deep Vein Thrombosis/Pulmonary Embolism Present on Admission: No
[2018-04-15] MEDS ORDERED: Regadenoson Inj 0.4 MG/5 ML Syringe IV.PUSH ONE (10:39)
--- NOTE | 2018-04-15 11:13 | ECG ---
Date Performed: 04/14/2018 Time Performed: 17:41:06 PTAGE: 52 years EKG: SINUS TACHYCARDIA ABNORMAL RHYTHM ECG Otherwise no significant change NO PREVIOUS TRACING DOCTOR: Andrey Resendez Interpretating Date/Time 04/15/2018 11:12:06
[2018-04-15] MEDS ORDERED: Acetaminophen 500 MG Tablet PO PRN (11:44)
--- NOTE | 2018-04-15 11:46 | NM ---
EXAM DATE: 04/15/2018 11:36 AM EST AGE/SEX: 52 years / Female INDICATIONS:Angina. Coronary artery disease Substernal chest pain. CLINICAL DATA: This is the patient's initial encounter. Patient reports that signs and symptoms have been present for 1 day and indicates a pain score of 4/10. MEDICAL/SURGICAL HISTORY: Diabetes mellitus type II. Hypertension. Coronary artery stent. COMPARISON: [facility], MYOCARDIAL PERF PHARM SPECT, 01/05/2017. . DOSE: 8.5 mCi Tc 99m Myoview at rest 25.4 mCi [id number] at stress 0.4 mg Lexiscan STRESS SYMPTOMS: Chest pain, dyspnea, heart racing and headache. EJECTION FRACTION: 68 % TECHNIQUE: The patient underwent pharmacologic stress with infusion of prescribed dose. Continuous ECG tracing was monitored during stress. Gated SPECT imaging was performed after stress and conventi onal SPECT imaging was performed at rest. The examination was performed on a SPECT/CT scanner, both attenuation and non-corrected datasets were reviewed. FINDINGS: Distribution: The maximum perfused segment at stress is in the lateral wall. Perfusion Study: The pattern of perfusion at stress is within normal limits. Gated Study: There are intact wall motion and wall thickening without hypokinetic or dyskinetic segm ents. The ejection fraction is calculated at 68%. RISK CATEGORY: Low (<1% Annual Motality Rate) CONCLUSION: Negative myocardial perfusion stress test. Electronically signed by: Wisam Rendon MD 04/15/2018 11:45 AM EST
[2018-04-15] MEDS ORDERED: Lisinopril 5 MG Tablet PO SCH (12:15)
[2018-04-15] MEDS ORDERED: Metoprolol Tartrate 25 MG Tablet PO SCH (12:15)
--- NOTE | 2018-04-16 09:00 | TR ---
Date Performed: 04/15/2018 Time Performed: 10:52:55 DOCTOR: Andrey Resendez DRUG LIST: CLINICAL HISTORY: CHEST PAIN REASON FOR TEST: CHEST PAIN REASON FOR ENDING: OBSERVATION: CONCLUSION: Lexiscan stress test was performed under standard four minute protocol. Radionuclide was injected one minute prior to ending the test. No electrocardiographic abormalities were present to suggest ischemia. Nuclear imaging and interpretation are pending. COMMENTS:
== END 2018-04-15 13:10 | disposition home or self-care (01) ==
LOC: NEPC 17:24 → NEDA 17:24 → NEPFCDU 23:11
PROVIDERS: ADMIT Internal Medicine Interventional Cardiology; ATTEND Internal Medicine Interventional Cardiology
DX: Z79.02 Long term (current) use of antithrombotics/antiplatelets; D86.9 Sarcoidosis, unspecified; E78.00 Pure hypercholesterolemia, unspecified; Z88.1 Allergy status to other antibiotic agents; R94.31 Abnormal electrocardiogram [ECG] [EKG]; F17.211 Nicotine dependence, cigarettes, in remission; I10 Essential (primary) hypertension; I25.10 Atherosclerotic heart disease of native coronary artery without angina pectoris; E11.9 Type 2 diabetes mellitus without complications; Z95.5 Presence of coronary angioplasty implant and graft; Z68.41 Body mass index [BMI] 40.0-44.9, adult; E66.01 Morbid (severe) obesity due to excess calories; G89.29 Other chronic pain; R07.89 Other chest pain